=== PATIENT | female | born 1985 | race Caucasian/White ===

== ENCOUNTER 2016-02-29 07:00 | Day surgery (SDC) | payer OTHER ==
[2016-02-21 14:51] VITALS: BMI 21.4
--- NOTE | 2016-02-28 14:42 | P.HPOB ---
History of Present Illness H&P Date: 02/28/16 Chief Complaint: DELFINO III 30 year old presents for LEEP due to LGSIL pap and DELFINO III on colp. Review of Systems All systems: negative Constitutional: Denies chills, Denies fever Eyes: denies blurred vision, denies pain Ears, nose, mouth and throat: Denies headache, Denies sore throat Cardiovascular: Denies chest pain, Denies shortness of breath Respiratory: Denies cough Gastrointestinal: Denies abdominal pain, Denies diarrhea, Denies nausea, Denies vomiting Genitourinary: Denies dysuria, Denies hematuria Musculoskeletal: Denies myalgias Integumentary: Denies pruritus, Denies rash Neurological: Denies numbness, Denies weakness Psychiatric: Denies anxiety, Denies depression Endocrine: Denies fatigue, Denies weight change Past Medical History Past Medical History: Asthma Additional Past Medical History / Comment(s): LYME DISEASE. ABNORMAL PAP SMEAR History of Any Multi-Drug Resistant Organisms: None Reported Past Surgical History: Tubal Ligation Past Anesthesia/Blood Transfusion Reactions: No Reported Reaction Past Psychological History: Depression Smoking Status: Former smoker Past Alcohol Use History: Occasional Additional Past Alcohol Use History / Comment(s): QUIT SMOKING 10 YRS AGO Past Drug Use History: None Reported - Past Family History Mother Family Medical History: No Reported History Medications and Allergies Home Medications Medication Instructions Recorded Confirmed Type Albuterol Sulfate [Proair Hfa] 2 puff INHALATION DIRECTED PRN 11/07/15 History Doxycycline Monohydrate [Monodox] 200 mg PO DAILY 02/21/16 02/21/16 History Escitalopram [Lexapro] 10 mg PO DAILY 02/21/16 02/21/16 History Fluconazole [Diflucan] 200 mg PO DIRECTED 02/21/16 02/21/16 History Allergies Allergy/AdvReac Type Severity Reaction Status Date / Time ciprofloxacin [From Cipro] Allergy Rash/Hives Verified 02/21/16 14:28 ciprofloxacin HCl Allergy Rash/Hives Verified 02/21/16 14:28 [From Cipro] Exam Osteopathic Statement: *. No significant issues noted on an osteopathic structural exam other than those noted in the History and Physical/Consult. Heart: RRR Lungs: CTAB Abdomen: soft, nontender Extremeties: neg ej's Assessment and Plan (1) DELFINO III (cervical intraepithelial neoplasia grade III) with severe dysplasia Status: Acute Plan: 1. LEEP
[~2016-02-29 07:00] MED LIST: DEXAMETHASONE SOD PHOSPHATE 10 MG/ML 1 ML VIAL IV ONE; FAMOTIDINE 20 MG/2 ML VIAL IV PRN; LACTATED RINGERS 1,000 ML IV SCH; LIDOCAINE 1% 20 ML VIAL (10MG/ML) FOR IV START INTRADERMA PRN; MIDAZOLAM 2 MG/2 ML VIAL IV PRN; Pre Op ABX Message 1 EACH MISC MISCELLANE ONE; SCOPOLAMINE 1.5MG/72HR PATCH TRANSDERM ONE
[2016-02-29] MEDS ORDERED: LIDOCAINE 1% 20 ML VIAL (10MG/ML) FOR IV START INTRADERMA ONE (07:39)
[2016-02-29] MEDS ORDERED: MIDAZOLAM 2 MG/2 ML VIAL ONE (07:53)
[2016-02-29] MEDS ORDERED: KETOROLAC 30 MG/ML 1 ML VIAL ONE (07:53)
[2016-02-29] MEDS ORDERED: PROPOFOL 10 MG/ML 20 ML VIAL IV ONE (07:53)
[2016-02-29] MEDS ORDERED: fentaNYL (PF) 50 MCG/ML 2 ML AMP ONE (07:53)
[2016-02-29] MEDS ORDERED: LIDOCAINE 1% INJ 10MG/ML (20 ML MDV) ONE (07:53)
[2016-02-29] MEDS ORDERED: ACETIC ACID 15 DROPS/ML DROPS MISCELLANE ONE (08:05)
[2016-02-29] MEDS ORDERED: FERRIC SUBSULFATE (MONSELS) JAR TOPICAL ONE (08:07)
[2016-02-29 08:24] VITALS: TEMP 97.4
--- NOTE | 2016-02-29 08:32 | P.OP ---
Date of Procedure: 02/29/16 Preoperative Diagnosis: DELFINO III Postoperative Diagnosis: DELFINO III Procedure(s) Performed: LEEP Anesthesia: MAC Surgeon: Sandra Vela Estimated Blood Loss (ml): 1 IV fluids (ml): 400 Urine output (ml): 10 Pathology: other (cervical cone) Condition: stable Disposition: PACU Description of Procedure: Patient taken the operating room where general anesthesia was obtained without difficulty. She is prepped draped normal sterile fashion dorsal lithotomy position, legs placed in candy can stirrups. The latter was drained of all urine. Burns speculum placed in the vagina. A 2 cm loop was used to obtain a cervical biopsy. As taken from patient's right to left. Another sweep was done along the 6 o'clock position and then along the 3 o'clock position. The crater left and the cervix was cauterized with the ball tip. Monsel's was then placed. Excellent hemostasis was observed. Patient tolerated the procedure well, sponge and instrument counts are correct 2. She was taken to recovery room in stable condition.
[2016-02-29 08:44] VITALS: RESP 16
[2016-02-29] MEDS ORDERED: Acetaminophen-Codeine 300-30mg TAB PO ONE (09:10)
[2016-02-29 09:53] VITALS: BP 108/69; PULSE 80
== END 2016-02-29 09:54 | disposition home or self-care (01) ==
LOC: OR 07:00
PROVIDERS: ATTEND Obstetrics & Gynecology
DX: N87.1 Moderate cervical dysplasia (principal); J45.909 Unspecified asthma, uncomplicated; F32.9 Major depressive disorder, single episode, unspecified; Z79.899 Other long term (current) drug therapy; Z88.1 Allergy status to other antibiotic agents; Z87.891 Personal history of nicotine dependence
CPT/HCPCS: 57522; 81025; 88307; J2250; J1100; J2001; J3010; J1885; J2704

== ENCOUNTER → 2017-09-04 | Outpatient (CLI) | payer OTHER ==
--- NOTE | 2017-09-05 07:37 | US ---
EXAMINATION TYPE: US pelvis complete transvag DATE OF EXAM: 09/04/2017 COMPARISON: CT abdomen and pelvis December 22, 2012. Pelvic ultrasound February 03, 2016. CLINICAL HISTORY: N92.5 IRREG MENSES,R10.2 PELVIC AND PERINEAL PAIN,N94.12 DYS. Pelvic pain, spotting between menses, tubal ligation TECHNIQUE: Transvaginal (TV) and Transabdominal (TA) . Transabdominal sonographic images of the pel vis were acquired. Transvaginal sonographic images were medically necessary to better assess the fol lowing anatomy: endometrium and ovaries Date of LMP: 08/30/17 EXAM MEASUREMENTS: Uterus: 10.7 x 3.6 x 4.4 cm Endometrial Stripe: 0.4 cm Right Ovary: 3.3 x 2.5 x 2.7 cm Left Ovary: 2.1 x 2.0 x 2.0 cm 1. Uterus: Anteverted Nabothian cyst. Heterogenous 2. Endometrium: appears wnl 3. Right Ovary: follicles noted 4. Left Ovary: follicles noted Spectral, color and waveform doppler imaging shows good arterial and venous flow within the ovaries . 5. Bilateral Adnexa: appears wnl 6. Posterior cul-de-sac: wnl Heterogeneous anteverted uterus is present. Tiny nabothian cyst is seen in cervix on image 26. No lorena e fluid in pelvic cul-de-sac. Both ovaries are present with scattered peripheral follicles. No suspicious extraovarian adnexal mass es are seen. IMPRESSION: No significant finding is seen to account for patient's symptoms.
== END | disposition home or self-care (01) ==
LOC: RADUSWWP 16:21
PROVIDERS: ATTEND Family Medicine
DX: R10.2 Pelvic and perineal pain (principal); N94.12 Deep dyspareunia; N92.5 Other specified irregular menstruation
CPT/HCPCS: 76830; 76856; 93975

== ENCOUNTER → 2017-11-28 | Outpatient (CLI) | payer OTHER ==
--- NOTE | 2017-11-28 10:13 | USB ---
Reason for exam: clinical finding. Indicated problem(s): palpable abnormality in the right breast. Physical Findings: Nurse Summary: noticed lump 1 week ago (nurse kp). US Breast RT Right complete breast ultrasound includes all four quadrants, the retroareolar region and axilla. Finding demonstrates a 0.6 x 0.5 x 0.7cm oval, cystic lesion at 2 o'clock, a 0.6 x 0.4 x 0.5cm oval, cystic lesion at 8 o'clock, a 1.8 x 1.4 x 1.7cm oval, solid, vascular lesion at 9 o'clock for which a biopsy is recommended and a 1.6 x 0.5 x 0.6cm oval, cystic cluster at 11 o'clock. These results were verbally communicated with the patient and result sheet given to the patient on 11/28/16. ASSESSMENT: Suspicious, BI-RAD 4 RECOMMENDATION: Ultrasound core biopsy of the right breast. Called Dr. Uribe with mammographic findings and has scheduled an appointment for the patient for 12/19/17 at 9:[address] Bennett. Biopsy scheduled for 12/09/17 at 12:20. PRELIMINARY REPORT CALLED AND FAXED TO DR. BENNETT ON 11/28/17.
== END | disposition home or self-care (01) ==
LOC: RADUSWWP 08:22
PROVIDERS: ATTEND Family Medicine
DX: N63.11 Unspecified lump in the right breast, upper outer quadrant (principal); R92.8 Other abnormal and inconclusive findings on diagnostic imaging of breast

== ENCOUNTER → 2017-12-09 | Day surgery (SDC) | payer OTHER ==
[2017-12-09 11:51] VITALS: RESP 16; TEMP 98.1
[2017-12-09 13:26] VITALS: BP 103/66; PULSE 85
--- NOTE | 2017-12-09 16:49 | USB ---
EXAMINATION TYPE: US biopsy breast VAD RT DATE OF EXAM: 12/09/2017 CLINICAL HISTORY: 32-year-old female palpable finding in the right breast. TECHNIQUE: Ultrasound guided core biopsy of the right breast. COMPARISON: 11/28/2017 FINDINGS: The procedure of ultrasound guided core biopsy was explained to the patient. Benefits, alternatives, and risks were discussed. An informed consent was then obtained. The patient was placed in supine positioning for imaging and for the procedure. The overlying skin was prepped and draped in usual sterile fashion. Lidocaine buffered with bicarbonate was used as anesthetic into the skin and subcutaneous tissue. Subsequently, a mixture of lidocaine and epinephrine was used as anesthetic into the deeper tissues and into and around the target lesion at the 9:00 position. Under ultrasound guidance, a 13-gauge vacuum assisted Mammotome Elite biopsy gun device was used to obtain 6 core samples. Following this, a coil clip was left in lesion. The patient tolerated the procedure well without any immediate complication. The patient was kept in the radiology department for short stay after the procedure and then discharged home in stable condition. Given the patient's age and large size of the lesion, postbiopsy mammogram was not performed. IMPRESSION: Successful, uncomplicated ultrasound guided core biopsy of area of concern in the 9:00 right breast, full pathology results to follow. Pathology Results: Benign BREAST, RIGHT, 9:00, ULTRASOUND GUIDED CORE BIOPSY: Fibroadenoma. Background fibrocystic changes including cysts, fibrosis and apocrine metaplasia. Recommendation Follow up ultrasound of the right breast in 6 months. KARLEY
== END ==
LOC: RADUSWWP 11:11
PROVIDERS: ATTEND Surgery
DX: D24.1 Benign neoplasm of right breast (principal)
CPT/HCPCS: 19083; 88305; A4648; J2001

== ENCOUNTER 2018-04-19 14:08 | Emergency (ER) | payer OTHER ==
[2018-04-19 14:14] VITALS: RESP 18
--- NOTE | 2018-04-19 15:11 | XR ---
EXAMINATION TYPE: XR chest 2V DATE OF EXAM: 04/19/2018 COMPARISON: NONE HISTORY: Cough and congestion TECHNIQUE: Frontal and lateral views of the chest are obtained. FINDINGS: There is no focal air space opacity, pleural effusion, or pneumothorax seen. The cardiac silhouette size is within normal limits. The osseous structures are intact. IMPRESSION: No acute cardiopulmonary process.
--- NOTE | 2018-04-19 16:24 | ED ---
General Adult HPI - General Chief complaint: Shortness of Breath Stated complaint: Cough Time Seen by Provider: 04/19/18 14:22 Source: patient, RN notes reviewed Mode of arrival: ambulatory Limitations: no limitations - History of Present Illness Initial comments: 33-year-old female presents to the emergency department for a chief complaint of cough. Patient does have a history of asthma. Patient states the cough is productive with green mucus. Patient states she also has congestion noted. She states over the past couple days she is concerned because somewhat short of breath. She states the shortness of breath is exactly consistent with previous asthma. Patient has been on steroids for the past several days as well as breathing treatments at home but does not feel she is getting better. She states that she has had this in the past she has needed antibiotics. She denies any chest pain. She denies significant fevers. Patient denies any recent travel, leg swelling, oral contraceptive pills, history of blood clots Patient has no other complaints at this time including chest pain, abdominal pain, nausea or vomiting, headache, or visual changes. - Related Data Previous Rx's Medication Instructions Recorded Azithromycin [Zithromax Z-pack] 250 mg PO DIRECTED #6 tab 04/19/18 Allergies Allergy/AdvReac Type Severity Reaction Status Date / Time ciprofloxacin [From Cipro] Allergy Rash/Hives Verified 04/19/18 14:13 ciprofloxacin HCl Allergy Rash/Hives Verified 04/19/18 14:13 [From Cipro] Review of Systems ROS Statement: Those systems with pertinent positive or pertinent negative responses have been documented in the HPI. ROS Other: All systems not noted in ROS Statement are negative. Past Medical History Past Medical History: Asthma Additional Past Medical History / Comment(s): LYME DISEASE. ABNORMAL PAP SMEAR History of Any Multi-Drug Resistant Organisms: None Reported Past Surgical History: Tubal Ligation Past Anesthesia/Blood Transfusion Reactions: No Reported Reaction Past Psychological History: Depression Smoking Status: Former smoker Past Alcohol Use History: Occasional Past Drug Use History: None Reported - Past Family History Mother Family Medical History: No Reported History General Exam Limitations: no limitations General appearance: alert, in no apparent distress Head exam: Present: atraumatic, normocephalic, normal inspection Eye exam: Present: normal appearance, PERRL, EOMI. Absent: scleral icterus, conjunctival injection, periorbital swelling ENT exam: Present: normal exam Neck exam: Present: normal inspection. Absent: tenderness, meningismus, lymphadenopathy Respiratory exam: Present: wheezes (Minimal wheezing noted in bilateral lung viera). Absent: respiratory distress (No respiratory distress noted, respirations are even and unlabored. Patient is smiling and appears well), rales, rhonchi, stridor Cardiovascular Exam: Present: regular rate, normal rhythm, normal heart sounds. Absent: systolic murmur, diastolic murmur, rubs, gallop, clicks Neurological exam: Present: alert, oriented X3, CN II-XII intact Psychiatric exam: Present: normal affect, normal mood Course Vital Signs 04/19/18 04/19/18 14:12 16:39 Temperature 98.2 F 98.4 F Pulse Rate 103 H 72 Respiratory 18 18 Rate Blood Pressure 115/56 115/78 O2 Sat by Pulse 97 98 Oximetry Medical Decision Making - Medical Decision Making 33-year-old female presents to the emergency department for a chief complaint of cough 1 week. Patient states this is productive with green mucus. She also has minimal shortness of breath over the past several days. Patient states this feels exactly related to her asthma. She has been on steroids for the past couple days without significant improvement. States that this has happened in the past and she has needed antibiotics. No leg swelling, recent travel, hemoptysis, oral contraceptive pills. Mild wheezing noted in lower bilateral lung viera. Offered patient breathing treatments which she refuses at this time stating she has these at home and would rather do one of her own. Influenza and RSV are negative just x-ray negative for acute cardiopulmonary process. However patient will be treated with azithromycin for possible atypical pneumonia. Will follow up with primary one to 2 days. Will return here if she has any worsening symptoms or increasing shortness of breath. - Lab Data Lab Results 04/19/18 Range/Units 14:43 Influenza Type A RNA Not Detected (Not Detectd) Influenza Type B (PCR) Not Detected (Not Detectd) Disposition Clinical Impression: Cough Disposition: HOME SELF-CARE Condition: Good Instructions (If sedation given, give patient instructions): Upper Respiratory Infection (ED) Additional Instructions: Please take antibiotic as directed. Please up with primary care in 1-2 days. If you are having worsening symptoms return here to the emergency department. Prescriptions: Azithromycin [Zithromax Z-pack] 250 mg PO DIRECTED #6 tab Is patient prescribed a controlled substance at d/c from ED?: No Referrals: Farzad Uribe III, MD [Primary Care Provider] - 1-2 days Time of Disposition: 16:22
[2018-04-19 16:40] VITALS: BP 115/78; PULSE 72; TEMP 98.4
== END 2018-04-19 16:38 | disposition home or self-care (01) ==
LOC: EC 14:08
DX: R05 Cough (principal); J45.909 Unspecified asthma, uncomplicated; Z88.1 Allergy status to other antibiotic agents; Z87.891 Personal history of nicotine dependence
CPT/HCPCS: 71046; 87502; 99285

== ENCOUNTER → 2018-04-25 | Day surgery (SDC) | payer OTHER ==
[2018-04-22 11:10] VITALS: BMI 20.5
[~2018-04-25] MED LIST changes: +BUPIVACAINE (PF) 0.25% 30 ML VIAL SQ ONE; -FAMOTIDINE 20 MG/2 ML VIAL IV PRN; +HEPARIN SODIUM,PORCINE 5,000 UNIT/ML 1 ML VIAL SQ ONE; +HYDROcodone/APAP 5-325MG 1 EACH TAB PO ONE; +HYDROcodone/APAP 5-325MG 1 EACH TAB PO PRN; +HYDROmorphone 0.5 MG/0.5 ML SYRINGE IVP PRN; +KETOROLAC 30 MG/ML 1 ML VIAL ONE; +LIDOCAINE 0.5%-EPI 1:200,000 50 ML VIAL SQ ONE; -LIDOCAINE 1% 20 ML VIAL (10MG/ML) FOR IV START INTRADERMA PRN; +LIDOCAINE 1% INJ 10MG/ML (20 ML MDV) ONE; +MIDAZOLAM (PF) 2 MG/2 ML VIAL IV PRN; -MIDAZOLAM 2 MG/2 ML VIAL IV PRN; +NALOXONE 0.4 MG/ML 1 ML VIAL IV PRN; +ONDANSETRON 4 MG/2 ML VIAL IVP ONE; +PROPOFOL 10 MG/ML 20 ML VIAL IV ONE; +diphenhydrAMINE 50 MG/ML 1 ML VIAL ONE; +fentaNYL (PF) 50 MCG/ML 2 ML AMP ONE
[2018-04-25 11:00] LABS: Glucose,Whole Blood 86 mg/dL (75-99)
--- NOTE | 2018-04-25 12:56 | P.GSHP ---
History of Present Illness H&P Date: 04/25/18 Chief Complaint: Right breast mass 33-year-old female known to our service. Patient underwent ultrasound after feeling a mass in the right breast. Ultrasound showed a 1.8 cm solid lesion. Ultrasound core biopsy was performed which revealed a fibroadenoma. Options of observation versus excision given the size of this lesion and the patient's ongoing inability to feel the mass discussed. Initially observation was chosen however she contacted us stating that she was concerned it was enlarging. Here today for surgical excision of this right breast mass. Past Medical History Past Medical History: Asthma Additional Past Medical History / Comment(s): LYME DISEASE. ABNORMAL PAP SMEAR. RT BREAST FIBROADENOMA. SEEN IN ER 04/19/18 FOR COUGH/ASTHMA History of Any Multi-Drug Resistant Organisms: None Reported Past Surgical History: Tubal Ligation Additional Past Surgical History / Comment(s): LEEP Past Anesthesia/Blood Transfusion Reactions: No Reported Reaction Smoking Status: Former smoker - Past Family History Mother Family Medical History: No Reported History Medications and Allergies Home Medications Medication Instructions Recorded Confirmed Type Azithromycin [Zithromax Z-pack] 250 mg PO DIRECTED #6 tab 04/19/18 04/25/18 Rx Albuterol Inhaler [Ventolin Hfa 1 - 2 puff INHALATION RT-Q6H PRN 04/22/18 History Inhaler] Albuterol Nebulized [Ventolin 1 dose INHALATION QID 04/22/18 04/25/18 History Nebulized] Montelukast [Singulair] 10 mg PO DAILY 04/22/18 04/25/18 History predniSONE 10 mg PO DIRECTED 04/22/18 04/25/18 History Allergies Allergy/AdvReac Type Severity Reaction Status Date / Time ciprofloxacin [From Cipro] Allergy Rash/Hives Verified 04/25/18 10:39 ciprofloxacin HCl Allergy Rash/Hives Verified 04/25/18 10:39 [From Cipro] Surgical - Exam Vital Signs Temp Pulse Resp BP Pulse Ox 98.6 F 85 16 113/72 98 04/25/18 10:40 04/25/18 10:40 04/25/18 10:40 04/25/18 10:40 04/25/18 10:40 Physical exam: General: Well-developed, well-nourished HEENT: Normocephalic, sclerae nonicteric Abdomen: Nontender, nondistended Extremities: No edema Neuro: Alert and oriented Right breast with 2 cm mass 9:00, no adenopathy Assessment and Plan (1) Breast mass, right Narrative/Plan: Will proceed with right breast excisional biopsy at this time. Risks of bleeding, infection, scarring, numbness, dimpling, pain, recurrence reviewed. She understands and wishes to proceed. Current Visit: Yes Status: Acute Code(s): N63.10 - UNSPECIFIED LUMP IN THE RIGHT BREAST, UNSPECIFIED QUADRANT SNOMED Code(s): 36506458
--- NOTE | 2018-04-25 14:23 | P.OP ---
Date of Procedure: 04/25/18 Procedure(s) Performed: PREOPERATIVE DIAGNOSIS: Right breast fibroadenoma POSTOPERATIVE DIAGNOSIS: Same PROCEDURE: Excisional biopsy right breast fibroadenoma SURGEON: Donald EBL: Nakita Kohler ANESTHESIA: Gen. COMPLICATIONS: None OPERATIVE PROCEDURE: And placed in the operating table in the supine position for the patient was placed under general anesthesia. The right breast was prepped and draped in usual sterile fashion. An elliptical incision made along the lateral aspect of the areola. Dissection through the subcutaneous tissues took place using electrocautery. The mass was present at 9:00. This was approximately 3-4 cm from the areola. The mass was fully excised with the use of electrocautery. This measured approximately 2 centimeters in size. Subcutaneous tissues closed using 3-0 Vicryl sutures. Skin closed using 4-0 Monocryl sutures. Skin glue and sterile dressings applied. DISPOSITION: Stable to recovery room
[2018-04-25 14:33] VITALS: TEMP 97.7
[2018-04-25 14:43] VITALS: RESP 16
[2018-04-25 15:16] VITALS: BP 96/55; PULSE 85
== END | disposition home or self-care (01) ==
LOC: OR 10:25
PROVIDERS: ATTEND Surgery
DX: D24.1 Benign neoplasm of right breast (principal); Z87.891 Personal history of nicotine dependence; Z88.1 Allergy status to other antibiotic agents; J45.909 Unspecified asthma, uncomplicated
CPT/HCPCS: 81025; 88305; 19120; J1200; J1644; J1100; J2405; J2001; J3010; J1885; J2704

== ENCOUNTER 2018-07-09 07:56 | Emergency (ER) | payer OTHER ==
[2018-07-09 07:59] VITALS: BP 108/72; PULSE 88; RESP 20; TEMP 97.5
[2018-07-09] MEDS ORDERED: DEXAMETHASONE 4 MG TAB PO STA (08:11)
[2018-07-09] MEDS ORDERED: ACETAMINOPHEN TAB 325 MG TAB PO STA (08:11)
--- NOTE | 2018-07-09 08:14 | ED ---
ENT HPI - General Chief complaint: ENT Stated complaint: sorethroat Source: patient Mode of arrival: ambulatory Limitations: no limitations - History of Present Illness Initial comments: 33-year-old female who denies past medical history presenting today for chief complaint of sore throat, headache. Patient states she has had sore throat headache some chills for the past day. She states she noticed white spots on her tonsils she denies any difficulty swallowing or breathing. She denies any compressive symptoms. Patient denies any photophobia or neck stiffness. Patient denies any abdominal pain nausea vomiting diarrhea. Patient denies . Remaining review of systems negative. Upon arrival patient appears well no signs acute distress patient does not appear toxic. - Related Data Home Medications Medication Instructions Recorded Confirmed Albuterol Inhaler [Ventolin Hfa 1 - 2 puff INHALATION RT-Q6H PRN 04/22/18 07/09/18 Inhaler] Montelukast [Singulair] 10 mg PO DAILY 04/22/18 07/09/18 Ibuprofen [Advil] 800 mg PO Q6HR 07/09/18 07/09/18 Previous Rx's Medication Instructions Recorded Amoxicillin 500 mg PO Q12H 10 Days #20 capsule 07/09/18 Allergies Allergy/AdvReac Type Severity Reaction Status Date / Time ciprofloxacin [From Cipro] Allergy Rash/Hives Verified 07/09/18 08:15 ciprofloxacin HCl Allergy Rash/Hives Verified 07/09/18 08:15 [From Cipro] Review of Systems ROS Statement: Those systems with pertinent positive or pertinent negative responses have been documented in the HPI. ROS Other: All systems not noted in ROS Statement are negative. Past Medical History Past Medical History: Asthma Additional Past Medical History / Comment(s): LYME DISEASE. ABNORMAL PAP SMEAR History of Any Multi-Drug Resistant Organisms: None Reported Past Surgical History: Tubal Ligation Past Anesthesia/Blood Transfusion Reactions: No Reported Reaction Past Psychological History: Depression Smoking Status: Former smoker Past Alcohol Use History: None Reported Past Drug Use History: None Reported - Past Family History Mother Family Medical History: No Reported History General Exam - General Exam Comments Initial Comments: General: The patient is awake and alert, in no distress, and does not appear acutely ill. Eye: +3 mm pupils are equal, round and reactive to light, extra-ocular movements are intact. No nystagmus. There is normal conjunctiva bilaterally. No signs of icterus. No photophobia Ears, nose, mouth and throat: There are moist mucous membranes and no oral lesions. Oropharynx is erythematous there is erythematous tonsils with many exudates. Uvula midline. Tympanic membranes are not erythematous or is no effusions bulging or retraction. No tenderness to palpation of the mastoid. No anterior cervical lymphadenopathy. Rhinorrhea, clear and bilateral nares. No tripoding, no drooling. Neck: The neck is supple, there is no tenderness or JVD. No nuchal rigidity negative Brudzinski and Kernig Cardiovascular: There is a regular rate and rhythm. No murmur, rub or gallop is appreciated. Respiratory: Lungs are clear to auscultation, respirations are non-labored, breath sounds are equal. No wheezes, stridor, rales, or rhonchi. No retractions or abdominal breathing. Gastrointestinal: Soft, non-distended, non-tender abdomen without masses or organomegaly noted. There is no rebound or guarding present. Bowel sounds are unremarkable. Musculoskeletal: Normal ROM, no tenderness. Strength 5/5. Sensation intact. Radial pulses equal bilaterally 2+. Neurological: A&O x 3. CN II-XII intact, There are no obvious motor or sensory deficits. Coordination appears grossly intact. Speech appears normal, no muffling. Skin: Skin is warm and dry and no rashes or lesions are noted. No extremity edema Psychiatric: Cooperative Limitations: no limitations Course Vital Signs 07/09/18 07:57 Temperature 97.5 F L Pulse Rate 88 Respiratory 20 Rate Blood Pressure 108/72 O2 Sat by Pulse 100 Oximetry Medical Decision Making - Medical Decision Making Very well-appearing 33-year-old year-old presents for sore throat headache. Patient states is dull aching headache that comes and goes. Patient denies is coming on suddenly or being the worse headache of her life. Patient states she feels like she has a cold. Patient has pain with swallowing exudates on tonsils upon examination as well as erythema. Uvula is midline there is no signs of peritonsillar abscess. Patient does not appear toxic. She also complains of congestion and ear pressure. Normal examination the tympanic membranes and external auditory canal. At this time of high suspicion for strep pharyngitis. Patient be prescribed amoxicillin. Discussed if pt develops rash from amoxicillin she may have mononucleosis reaction. Patient verbalizes understanding. As well as the importance of follow-up with primary care provider. Return parameters were discussed at length. He is provided Decadron in the emergency department for symptomatically relief. Patient is agreeable care plan and discharged today. I spoke with Dr. Vazquez over the phone who is agreeable care plan discharge today Disposition Clinical Impression: Pharyngitis, Headache Disposition: HOME SELF-CARE Condition: Good Additional Instructions: Please use medication as discussed. Please follow-up with family doctor in the next 2 days. Please return to emergency room if the symptoms increase or worsen or for any other concerns. Prescriptions: Amoxicillin 500 mg PO Q12H 10 Days #20 capsule Is patient prescribed a controlled substance at d/c from ED?: No Referrals: Farzad Uribe III, MD [Primary Care Provider] - 1-2 days Time of Disposition: 08:15
== END 2018-07-09 08:27 | disposition home or self-care (01) ==
LOC: EC 07:56
DX: J02.9 Acute pharyngitis, unspecified (principal); R51 Headache; J45.909 Unspecified asthma, uncomplicated; Z79.899 Other long term (current) drug therapy; Z88.1 Allergy status to other antibiotic agents; Z87.891 Personal history of nicotine dependence
CPT/HCPCS: 99282; J8540

== ENCOUNTER 2018-09-06 18:27 | Emergency (ER) | payer OTHER ==
[2018-09-06 18:46] VITALS: TEMP 98.4
[2018-09-06] MEDS ORDERED: SODIUM CHLORIDE 0.9% 500 ML 500 ML IV STA (19:01)
[2018-09-06 20:08] LABS: Basophils % (A) 0 %; Eosinophils # (A) 0.1 k/uL (0-0.7); Eosinophils % (A) 1 %; HCT 38.9 % (34.0-46.0); Lymphocytes # (A) 1.8 k/uL (1.0-4.8); Lymphocytes % (A) 20 %; MCH 31.4 pg (25.0-35.0); MCHC 33.5 g/dL (31.0-37.0); MCV 93.6 fL (80.0-100.0); Mean Platelet Volume 8.3; Monocytes # (A) 0.4 k/uL (0-1.0); Monocytes % (A) 4 %; Neutrophils # (A) 6.3 k/uL (1.3-7.7); Neutrophils % (A) 73 %; Platelet Count 157 k/uL (150-450); RBC 4.16 m/uL (3.80-5.40); RDW 12.2 % (11.5-15.5); WBC 8.7 k/uL (3.8-10.6)
[2018-09-06 20:21] LABS: Chloride 105 mmol/L (98-107); Glucose 91 mg/dL (74-99); Potassium 4.1 mmol/L (3.5-5.1); Sodium 139 mmol/L (137-145)
[2018-09-06 20:22] LABS: ALT 20 U/L (9-52); AST 16 U/L (14-36); African American GFR (CKD) >90 (>60 ml/min/1.73 sqM); Albumin 4.2 g/dL (3.5-5.0); Alkaline Phosphatase 51 U/L (38-126); Amylase 44 U/L (30-110); Anion Gap 9 mmol/L; Blood Urea Nitrogen 10 mg/dL (7-17); Calcium 9.4 mg/dL (8.4-10.2); Carbon Dioxide 25 mmol/L (22-30); Lipase 50 U/L (23-300); Total Bilirubin 0.4 mg/dL (0.2-1.3); Total Protein 6.6 g/dL (6.3-8.2)
--- NOTE | 2018-09-06 20:25 | US ---
EXAMINATION TYPE: US abdomen limited DATE OF EXAM: 09/06/2018 COMPARISON: NONE CLINICAL HISTORY: RUQ pain. RUQ pain EXAM MEASUREMENTS: Liver Length: 13.9 cm Gallbladder Wall: 0.23 cm CBD: 0.46 cm Right Kidney: 11.1 x 3.3 x 5.0 cm Pancreas: wnl Liver: wnl Gallbladder: wnl Evidence for sonographic Yen's sign: No CBD: wnl Right Kidney: wnl IMPRESSION: 1. Normal right upper quadrant ultrasound
[2018-09-06 20:43] LABS: Appearance,Urine Cloudy (Clear); Bacteria,Urine Rare /hpf; Bilirubin,Urine Negative (Negative); Blood,Urine Negative (Negative); Calcium Oxalate Crystals,Urine Occasional /hpf; Color,Urine Yellow; Glucose,Urine (UA) Negative (Negative); Ketones,Urine 1+ (Negative); Leukocyte Esterase,Urine Negative (Negative); Mucus,Urine Many /hpf; Nitrite,Urine Negative (Negative); PH, Urine 5.5 (5.0-8.0); Protein,Urine Trace (Negative); RBC,Urine 1 /hpf (0-5); Specific Gravity,Urine 1.024 (1.001-1.035); Squamous Epithelial Cell,Urine 14 /hpf (0-4); Urobilinogen,Urine <2.0 mg/dL (<2.0); WBC,Urine 4 /hpf (0-5)
--- NOTE | 2018-09-06 21:24 | XR ---
EXAMINATION TYPE: XR abdomen acute w cxr DATE OF EXAM: 09/06/2018 COMPARISON: None HISTORY: Pain nausea TECHNIQUE: Acute abdominal series performed on a frontal chest upright and supine views of the abdome n FINDINGS: No free air is under the diaphragm. Nonspecific bowel gas is present within small bowel loo ps as well as the colon. No suspicious air-fluid levels or differential air-fluid levels are present within the [id number]. Lung viera are clear. IMPRESSION: 1. Normal acute abdominal series.
--- NOTE | 2018-09-06 21:55 | ED ---
Abdominal Pain HPI - General Source: patient Mode of arrival: ambulatory Limitations: no limitations <Ebony Neal - Last Filed: 09/06/18 23:11> <Joan Juarez - Last Filed: 09/07/18 05:32> - General Chief Complaint: Abdominal Pain Stated Complaint: Rt side Abd pain - History of Present Illness Initial Comments: 33-year-old female presenting for 3 hours of right upper quadrant abdominal pain. Patient states this sharp in nature. Denies radiation. Patient states it comes and goes in intensity. Patient denies any back pain. Denies chest pain shortness of breath cough or fevers. Patient denies any jaundice. Patient denies vomiting epigastric pain or lower abdominal pain. Patient denies diarrhea or constipation. Patient states when the pain persisted she decided to presents immersed for for further evaluation. Upon arrival patient appears well no signs of acute distress. Vital signs within acceptable limits. (Ebony Neal) - Related Data Home Medications Medication Instructions Recorded Confirmed Albuterol Inhaler [Ventolin Hfa 1 - 2 puff INHALATION RT-Q6H PRN 04/22/18 07/09/18 Inhaler] Montelukast [Singulair] 10 mg PO DAILY 04/22/18 07/09/18 Ibuprofen [Advil] 800 mg PO Q6HR 07/09/18 07/09/18 Previous Rx's Medication Instructions Recorded Amoxicillin 500 mg PO Q12H 10 Days #20 capsule 07/09/18 Allergies Allergy/AdvReac Type Severity Reaction Status Date / Time ciprofloxacin [From Cipro] Allergy Rash/Hives Verified 07/09/18 08:15 ciprofloxacin HCl Allergy Rash/Hives Verified 07/09/18 08:15 [From Cipro] Review of Systems ROS Other: All systems not noted in ROS Statement are negative. <Ebony Neal - Last Filed: 09/06/18 23:11> ROS Other: All systems not noted in ROS Statement are negative. <Joan Juarez - Last Filed: 09/07/18 05:32> ROS Statement: Those systems with pertinent positive or pertinent negative responses have been documented in the HPI. Past Medical History Past Medical History: Asthma Additional Past Medical History / Comment(s): LYME DISEASE. ABNORMAL PAP SMEAR History of Any Multi-Drug Resistant Organisms: None Reported Past Surgical History: Tubal Ligation Additional Past Surgical History / Comment(s): lumpectomy right breast Past Anesthesia/Blood Transfusion Reactions: No Reported Reaction Past Psychological History: Depression Smoking Status: Former smoker Past Alcohol Use History: Occasional Past Drug Use History: None Reported - Past Family History Mother Family Medical History: No Reported History <Ebony Neal - Last Filed: 09/06/18 23:11> General Exam Limitations: no limitations <Ebony Neal - Last Filed: 09/06/18 23:11> - General Exam Comments Initial Comments: General: The patient is awake and alert, in no distress, and does not appear acutely ill. Eye: Pupils are equal, round and reactive to light, extra-ocular movements are intact. No nystagmus. There is normal conjunctiva bilaterally. No signs of icterus. Ears, nose, mouth and throat: There are moist mucous membranes and no oral lesions. Neck: The neck is supple, there is no tenderness or JVD. Cardiovascular: There is a regular rate and rhythm. No murmur, rub or gallop is appreciated. Respiratory: Lungs are clear to auscultation, respirations are non-labored, breath sounds are equal. No wheezes, stridor, rales, or rhonchi. Gastrointestinal: Soft, non-distended, right upper quadrant tenderness, (-) murphys sign, the abdomen without masses or organomegaly noted. There is no rebound or guarding present. No CVA tenderness. Bowel sounds are unremarkable. Musculoskeletal: Normal ROM, no tenderness. Strength 5/5. Sensation intact. Pulses equal bilaterally 2+. Neurological: A&O x 3. CN II-XII intact, There are no obvious motor or sensory deficits. Coordination appears grossly intact. Speech is normal. Skin: Skin is warm and dry and no rashes or lesions are noted. Psychiatric: Cooperative, appropriate mood & affect, normal judgment. (Ebony Neal) Course Vital Signs 09/06/18 09/06/18 18:41 22:04 Temperature 98.4 F Pulse Rate 78 81 Respiratory 18 16 Rate Blood Pressure 110/74 112/76 O2 Sat by Pulse 99 98 Oximetry Medical Decision Making - Lab Data Result diagrams: 09/06/18 19:38 09/06/18 19:38 <Ebony Neal - Last Filed: 09/06/18 23:11> - Lab Data Result diagrams: 09/06/18 19:38 09/06/18 19:38 <Joan Juarez - Last Filed: 09/07/18 05:32> - Medical Decision Making [age] female presented for upper quadrant abdominal pain. There is noted pain on examination. Appears mild. No rigidity no guarding no signs of peritoneal irritation. She appears well signs of acute distress. US (-). Acute abdomen series no free air. 1 view chest no abnormalities. Laboratory studies all within acceptable limits. At this time after reevaluation and repeat abdominal exam. I feel patient is stable for discharge with anticipatory guidance/strict return parameters for changes in symptoms/persistence. Patient is agreeable with care plan and discharge. I did consult Dr. Juarez prior to discharge. (Ebony Neal) I was available for consultation in the emergency department. The history and physical exam were done by the midlevel provider. I was consulted for this patient's care. I reviewed the case with the midlevel provider and based on their presentation of the patient, I agree with the assessment, medical decision making and plan of care as documented. Chart was dictated using [employer] dictation software. Attempts were made to correct any dictation errors however some typographical errors may persist. (Joan Juarez) - Lab Data Lab Results 09/06/18 09/06/18 09/06/18 Range/Units 19:38 19:38 20:20 WBC 8.7 (3.8-10.6) k/uL RBC 4.16 (3.80-5.40) m/uL Hgb 13.0 (11.4-16.0) gm/dL Hct 38.9 (34.0-46.0) % MCV 93.6 (80.0-100.0) fL MCH 31.4 (25.0-35.0) pg MCHC 33.5 (31.0-37.0) g/dL RDW 12.2 (11.5-15.5) % Plt Count 157 (150-450) k/uL Neutrophils % 73 % Lymphocytes % 20 % Monocytes % 4 % Eosinophils % 1 % Basophils % 0 % Neutrophils # 6.3 (1.3-7.7) k/uL Lymphocytes # 1.8 (1.0-4.8) k/uL Monocytes # 0.4 (0-1.0) k/uL Eosinophils # 0.1 (0-0.7) k/uL Basophils # 0.0 (0-0.2) k/uL Sodium 139 (137-145) mmol/L Potassium 4.1 (3.5-5.1) mmol/L Chloride 105 (98-107) mmol/L Carbon Dioxide 25 (22-30) mmol/L Anion Gap 9 mmol/L BUN 10 (7-17) mg/dL Creatinine 0.60 (0.52-1.04) mg/dL Est GFR (CKD-EPI)AfAm >90 (>60 ml/min/1.73 sqM) Est GFR (CKD-EPI)NonAf >90 (>60 ml/min/1.73 sqM) Glucose 91 (74-99) mg/dL Calcium 9.4 (8.4-10.2) mg/dL Total Bilirubin 0.4 (0.2-1.3) mg/dL AST 16 (14-36) U/L ALT 20 (9-52) U/L Alkaline Phosphatase 51 (38-126) U/L Total Protein 6.6 (6.3-8.2) g/dL Albumin 4.2 (3.5-5.0) g/dL Amylase 44 (30-110) U/L Lipase 50 (23-300) U/L Urine Color Urine Appearance (Clear) Urine pH (5.0-8.0) Ur Specific [place] (1.001-1.035) Urine Protein (Negative) Urine Glucose (UA) (Negative) Urine Ketones (Negative) Urine Blood (Negative) Urine Nitrite (Negative) Urine Bilirubin (Negative) Urine Urobilinogen (<2.0) mg/dL Ur Leukocyte Esterase (Negative) Urine RBC (0-5) /hpf Urine WBC (0-5) /hpf Ur Squamous Epith Cells (0-4) /hpf Calcium Oxalate Crystal (None) /hpf Urine Bacteria (None) /hpf Urine Mucus (None) /hpf Urine HCG, Qual Not Detected (Not Detectd) 09/06/18 Range/Units 20:20 WBC (3.8-10.6) k/uL RBC (3.80-5.40) m/uL Hgb (11.4-16.0) gm/dL Hct (34.0-46.0) % MCV (80.0-100.0) fL MCH (25.0-35.0) pg MCHC (31.0-37.0) g/dL RDW (11.5-15.5) % Plt Count (150-450) k/uL Neutrophils % % Lymphocytes % % Monocytes % % Eosinophils % % Basophils % % Neutrophils # (1.3-7.7) k/uL Lymphocytes # (1.0-4.8) k/uL Monocytes # (0-1.0) k/uL Eosinophils # (0-0.7) k/uL Basophils # (0-0.2) k/uL Sodium (137-145) mmol/L Potassium (3.5-5.1) mmol/L Chloride (98-107) mmol/L Carbon Dioxide (22-30) mmol/L Anion Gap mmol/L BUN (7-17) mg/dL Creatinine (0.52-1.04) mg/dL Est GFR (CKD-EPI)AfAm (>60 ml/min/1.73 sqM) Est GFR (CKD-EPI)NonAf (>60 ml/min/1.73 sqM) Glucose (74-99) mg/dL Calcium (8.4-10.2) mg/dL Total Bilirubin (0.2-1.3) mg/dL AST (14-36) U/L ALT (9-52) U/L Alkaline Phosphatase (38-126) U/L Total Protein (6.3-8.2) g/dL Albumin (3.5-5.0) g/dL Amylase (30-110) U/L Lipase (23-300) U/L Urine Color Yellow Urine Appearance Cloudy H (Clear) Urine pH 5.5 (5.0-8.0) Ur Specific [place] 1.024 (1.001-1.035) Urine Protein Trace H (Negative) Urine Glucose (UA) Negative (Negative) Urine Ketones 1+ H (Negative) Urine Blood Negative (Negative) Urine Nitrite Negative (Negative) Urine Bilirubin Negative (Negative) Urine Urobilinogen <2.0 (<2.0) mg/dL Ur Leukocyte Esterase Negative (Negative) Urine RBC 1 (0-5) /hpf Urine WBC 4 (0-5) /hpf Ur Squamous Epith Cells 14 H (0-4) /hpf Calcium Oxalate Crystal Occasional H (None) /hpf Urine Bacteria Rare H (None) /hpf Urine Mucus Many H (None) /hpf Urine HCG, Qual (Not Detectd) Disposition Is patient prescribed a controlled substance at d/c from ED?: No Time of Disposition: 21:55 <Ebony Neal - Last Filed: 09/06/18 23:11> <Joan Juarez P - Last Filed: 09/07/18 05:32> Clinical Impression: RUQ abdominal pain Disposition: HOME SELF-CARE Condition: Good Instructions (If sedation given, give patient instructions): Abdominal Pain (ED) Additional Instructions: Please use medication as discussed. Please follow-up with family doctor in the next 2 days, recommend surgical consultation if symptoms persistent for possible gallbladder colic. Please return to emergency room if the symptoms increase or worsen or for any other concerns. Referrals: Farzad Uribe III, MD [Primary Care Provider] - 1-2 days John Bennett MD [Medical Doctor] - 1-2 days
[2018-09-06 22:05] VITALS: BP 112/76; PULSE 81; RESP 16
== END 2018-09-06 22:00 | disposition home or self-care (01) ==
LOC: EC 18:27
DX: R10.11 Right upper quadrant pain (principal); Z32.02 Encounter for pregnancy test, result negative; J45.909 Unspecified asthma, uncomplicated; Z79.899 Other long term (current) drug therapy; Z88.1 Allergy status to other antibiotic agents; Z87.891 Personal history of nicotine dependence
CPT/HCPCS: 36415; 74022; 76705; 80053; 81001; 81025; 82150; 83690; 85025; 96360; 99284

== ENCOUNTER → 2018-09-24 | Outpatient (CLI) | payer OTHER ==
--- NOTE | 2018-09-24 14:11 | US ---
EXAMINATION TYPE: US transvaginal DATE OF EXAM: 09/24/2018 COMPARISON: US 2018 CLINICAL HISTORY: R10.2 Pelvic pain. Intermittent pelvic pain and pain during intercourse x couple we eks, 2, para 2, history of tubal ligation. TECHNIQUE: Transvaginal only per ordering physician. Date of LMP: 09/20/2018 EXAM MEASUREMENTS: Uterus: 8.3 x 3.5 x 5.7 cm Endometrial Stripe: 0.2 cm Right Ovary: 2.9 x 1.8 x 1.9 cm Left Ovary: 3.2 x 2.2 x 2.2 cm 1. Uterus: anteverted, heterogeneous 2. Endometrium: small amount of fluid within endo 3. Right Ovary: multiple follicles with largest measuring 1.2cm 4. Left Ovary: multiple follicles with largest measuring 1.8cm 5. Bilateral Adnexa: wnl 6. Posterior cul-de-sac: wnl IMPRESSION: Trace amount of fluid in the endometrial canal is likely physiologic related to phase of menses. Multiple bilateral ovarian follicles are seen, likely physiologic in this premenopausal femal e.
== END | disposition home or self-care (01) ==
LOC: RADUSWWP 13:27
PROVIDERS: ATTEND Family Medicine
DX: R10.2 Pelvic and perineal pain (principal)
CPT/HCPCS: 76830

== ENCOUNTER 2019-04-12 09:54 | Emergency (ER) | payer OTHER ==
[2019-04-12 10:02] VITALS: RESP 18; TEMP 98
[2019-04-12 10:27] LABS: Basophils # (A) 0.1 k/uL (0-0.2); Basophils % (A) 1 %; Eosinophils # (A) 0.1 k/uL (0-0.7); Eosinophils % (A) 1 %; HCT 41.7 % (34.0-46.0); HGB 13.6 gm/dL (11.4-16.0); Lymphocytes # (A) 1.4 k/uL (1.0-4.8); Lymphocytes % (A) 26 %; MCH 31.3 pg (25.0-35.0); MCHC 32.6 g/dL (31.0-37.0); Mean Platelet Volume 8.7; Monocytes # (A) 0.4 k/uL (0-1.0); Monocytes % (A) 6 %; Neutrophils # (A) 3.4 k/uL (1.3-7.7); Neutrophils % (A) 62 %; Platelet Count 206 k/uL (150-450); RBC 4.34 m/uL (3.80-5.40); RDW 12.1 % (11.5-15.5); WBC 5.5 k/uL (3.8-10.6)
[2019-04-12 10:37] LABS: ALT 14 U/L (4-34); AST 19 U/L (14-36); African American GFR (CKD) >90 (>60 ml/min/1.73 sqM); Albumin 4.5 g/dL (3.5-5.0); Alkaline Phosphatase 55 U/L (38-126); Amylase 46 U/L (30-110); Anion Gap 8 mmol/L; Bacteria,Urine Rare /hpf; Blood Urea Nitrogen 9 mg/dL (7-17); Calcium 9.7 mg/dL (8.4-10.2); Carbon Dioxide 27 mmol/L (22-30); Chloride 103 mmol/L (98-107); Glucose 80 mg/dL (74-99); Mucus,Urine Many /hpf; Non-African American GFR(CKD) >90 (>60 ml/min/1.73 sqM); RBC,Urine 6 /hpf (0-5); Sodium 138 mmol/L (137-145); Squamous Epithelial Cell,Urine 9 /hpf (0-4); Total Bilirubin 0.8 mg/dL (0.2-1.3); Total Protein 7.4 g/dL (6.3-8.2); WBC,Urine 67 /hpf (0-5)
[2019-04-12 10:42] LABS: Appearance,Urine Clear (Clear); Color,Urine Yellow; Glucose,Urine (UA) Negative (Negative); Ketones,Urine Negative (Negative); Protein,Urine 1+ (Negative)
[2019-04-12 10:43] LABS: Bilirubin,Urine Negative (Negative); Blood,Urine Negative (Negative); Leukocyte Esterase,Urine Large (Negative); Nitrite,Urine Negative (Negative); Urobilinogen,Urine <2.0 mg/dL (<2.0)
--- NOTE | 2019-04-12 11:05 | US ---
EXAMINATION TYPE: US transvaginal DATE OF EXAM: 04/12/2019 COMPARISON: Previous study dated 09/24/2018. CLINICAL HISTORY: pain. Pelvic and back pain x couple days, irregular cycles, 2, para 2, hist ory of tubal ligation. TECHNIQUE: Transvaginal only ER exam. Date of LMP: 04/04/2019 EXAM MEASUREMENTS: Uterus: 8.7 x 4.0 x 5.0 cm Endometrial Stripe: 0.5 cm Right Ovary: 3.1 x 1.7 x 2.4 cm Left Ovary: 3.0 x 2.0 x 2.3 cm 1. Uterus: anteverted, mildly heterogeneous 2. Endometrium: wnl 3. Right Ovary: multiple follicles with largest measuring 1.2cm 4. Left Ovary: multiple follicles with largest measuring 1.6cm Spectral, color and waveform doppler imaging shows good arterial flow within the ovaries; unable to obtain venous flow within bilateral ovaries. 5. Bilateral Adnexa: wnl 6. Posterior cul-de-sac: wnl IMPRESSION: ESSENTIALLY NORMAL PELVIC ULTRASOUND.
--- NOTE | 2019-04-12 11:17 | ED ---
Abdominal Pain HPI - General Chief Complaint: Abdominal Pain Stated Complaint: abdominal pain Time Seen by Provider: 04/12/19 10:04 Source: patient, RN notes reviewed Mode of arrival: ambulatory Limitations: no limitations - History of Present Illness Initial Comments: 34-year-old female presents emergency Department with chief complaint of abdominal pain. Patient states it started last few days. Patient states she does have some urinary frequency hesitancy. No fevers or chills she has some low back pain denies any diarrhea, constipation, nausea vomiting denies any chance she's had a prior tubal ligation. She states she's had some sp otting but states she is due for her menstrual cycle. Patient offers no other complaints. - Related Data Previous Rx's Medication Instructions Recorded Cephalexin [Keflex] 500 mg PO Q8HR #21 cap 04/12/19 Allergies Allergy/AdvReac Type Severity Reaction Status Date / Time ciprofloxacin [From Cipro] Allergy Rash/Hives Verified 04/12/19 10:57 ciprofloxacin HCl Allergy Rash/Hives Verified 04/12/19 10:57 [From Cipro] Review of Systems ROS Statement: Those systems with pertinent positive or pertinent negative responses have been documented in the HPI. ROS Other: All systems not noted in ROS Statement are negative. Past Medical History Past Medical History: Asthma Additional Past Medical History / Comment(s): LYME DISEASE. ABNORMAL PAP SMEAR History of Any Multi-Drug Resistant Organisms: None Reported Past Surgical History: Tubal Ligation Additional Past Surgical History / Comment(s): lumpectomy right breast Past Anesthesia/Blood Transfusion Reactions: No Reported Reaction Past Psychological History: Depression Smoking Status: Former smoker Past Alcohol Use History: Occasional Past Drug Use History: None Reported - Past Family History Mother Family Medical History: No Reported History General Exam Limitations: no limitations General appearance: alert, in no apparent distress Head exam: Present: atraumatic, normocephalic, normal inspection Respiratory exam: Present: normal lung sounds bilaterally. Absent: respiratory distress, wheezes, rales, rhonchi, stridor Cardiovascular Exam: Present: regular rate, normal rhythm, normal heart sounds. Absent: systolic murmur, diastolic murmur, rubs, gallop, clicks GI/Abdominal exam: Present: soft, tenderness (Mild lower), normal bowel sounds. Absent: distended, guarding, rebound, rigid Back exam: Absent: CVA tenderness (R), CVA tenderness (L) Neurological exam: Present: alert, oriented X3, CN II-XII intact Course Vital Signs 04/12/19 09:58 Temperature 98 F Pulse Rate 98 Respiratory 18 Rate Blood Pressure 104/67 O2 Sat by Pulse 99 Oximetry Medical Decision Making - Medical Decision Making Ultrasound was unremarkable. Labs are unremarkable other than the urinalysis reveals evidence of urinary tract infection. Patient we discharged on antibiotics return parameters were discussed. - Lab Data Result diagrams: 04/12/19 10:16 04/12/19 10:16 Lab Results 04/12/19 04/12/19 04/12/19 Range/Units 10:16 10:16 10:16 WBC 5.5 (3.8-10.6) k/uL RBC 4.34 (3.80-5.40) m/uL Hgb 13.6 (11.4-16.0) gm/dL Hct 41.7 (34.0-46.0) % MCV 96.0 (80.0-100.0) fL MCH 31.3 (25.0-35.0) pg MCHC 32.6 (31.0-37.0) g/dL RDW 12.1 (11.5-15.5) % Plt Count 206 (150-450) k/uL Neutrophils % 62 % Lymphocytes % 26 % Monocytes % 6 % Eosinophils % 1 % Basophils % 1 % Neutrophils # 3.4 (1.3-7.7) k/uL Lymphocytes # 1.4 (1.0-4.8) k/uL Monocytes # 0.4 (0-1.0) k/uL Eosinophils # 0.1 (0-0.7) k/uL Basophils # 0.1 (0-0.2) k/uL Sodium 138 (137-145) mmol/L Potassium 4.0 (3.5-5.1) mmol/L Chloride 103 (98-107) mmol/L Carbon Dioxide 27 (22-30) mmol/L Anion Gap 8 mmol/L BUN 9 (7-17) mg/dL Creatinine 0.73 (0.52-1.04) mg/dL Est GFR (CKD-EPI)AfAm >90 (>60 ml/min/1.73 sqM) Est GFR (CKD-EPI)NonAf >90 (>60 ml/min/1.73 sqM) Glucose 80 (74-99) mg/dL Calcium 9.7 (8.4-10.2) mg/dL Total Bilirubin 0.8 (0.2-1.3) mg/dL AST 19 (14-36) U/L ALT 14 (4-34) U/L Alkaline Phosphatase 55 (38-126) U/L Total Protein 7.4 (6.3-8.2) g/dL Albumin 4.5 (3.5-5.0) g/dL Amylase 46 (30-110) U/L Lipase 59 (23-300) U/L Urine Color Urine Appearance (Clear) Urine pH (5.0-8.0) Ur Specific [place] (1.001-1.035) Urine Protein (Negative) Urine Glucose (UA) (Negative) Urine Ketones (Negative) Urine Blood (Negative) Urine Nitrite (Negative) Urine Bilirubin (Negative) Urine Urobilinogen (<2.0) mg/dL Ur Leukocyte Esterase (Negative) Urine RBC (0-5) /hpf Urine WBC (0-5) /hpf Ur Squamous Epith Cells (0-4) /hpf Urine Bacteria (None) /hpf Urine Mucus (None) /hpf Urine HCG, Qual Not Detected (Not Detectd) 04/12/19 Range/Units 10:16 WBC (3.8-10.6) k/uL RBC (3.80-5.40) m/uL Hgb (11.4-16.0) gm/dL Hct (34.0-46.0) % MCV (80.0-100.0) fL MCH (25.0-35.0) pg MCHC (31.0-37.0) g/dL RDW (11.5-15.5) % Plt Count (150-450) k/uL Neutrophils % % Lymphocytes % % Monocytes % % Eosinophils % % Basophils % % Neutrophils # (1.3-7.7) k/uL Lymphocytes # (1.0-4.8) k/uL Monocytes # (0-1.0) k/uL Eosinophils # (0-0.7) k/uL Basophils # (0-0.2) k/uL Sodium (137-145) mmol/L Potassium (3.5-5.1) mmol/L Chloride (98-107) mmol/L Carbon Dioxide (22-30) mmol/L Anion Gap mmol/L BUN (7-17) mg/dL Creatinine (0.52-1.04) mg/dL Est GFR (CKD-EPI)AfAm (>60 ml/min/1.73 sqM) Est GFR (CKD-EPI)NonAf (>60 ml/min/1.73 sqM) Glucose (74-99) mg/dL Calcium (8.4-10.2) mg/dL Total Bilirubin (0.2-1.3) mg/dL AST (14-36) U/L ALT (4-34) U/L Alkaline Phosphatase (38-126) U/L Total Protein (6.3-8.2) g/dL Albumin (3.5-5.0) g/dL Amylase (30-110) U/L Lipase (23-300) U/L Urine Color Yellow Urine Appearance Clear (Clear) Urine pH 6.0 (5.0-8.0) Ur Specific [place] 1.010 (1.001-1.035) Urine Protein 1+ H (Negative) Urine Glucose (UA) Negative (Negative) Urine Ketones Negative (Negative) Urine Blood Negative (Negative) Urine Nitrite Negative (Negative) Urine Bilirubin Negative (Negative) Urine Urobilinogen <2.0 (<2.0) mg/dL Ur Leukocyte Esterase Large (Negative) Urine RBC 6 H (0-5) /hpf Urine WBC 67 H (0-5) /hpf Ur Squamous Epith Cells 9 H (0-4) /hpf Urine Bacteria Rare H (None) /hpf Urine Mucus Many H (None) /hpf Urine HCG, Qual (Not Detectd) Disposition Clinical Impression: UTI (urinary tract infection) Disposition: HOME SELF-CARE Condition: Stable Instructions (If sedation given, give patient instructions): Urinary Tract Infection in Women (ED) Additional Instructions: Please return to the Emergency Department if symptoms worsen or any other concerns. Prescriptions: Cephalexin [Keflex] 500 mg PO Q8HR #21 cap Is patient prescribed a controlled substance at d/c from ED?: No Referrals: Farzad Urbie III, MD [Primary Care Provider] - 1-2 days Time of Disposition: 11:16
[2019-04-12 11:52] VITALS: BP 113/67; PULSE 78
== END 2019-04-12 11:56 | disposition home or self-care (01) ==
LOC: EC 09:54
DX: N39.0 Urinary tract infection, site not specified (principal); Z87.891 Personal history of nicotine dependence; Z88.1 Allergy status to other antibiotic agents; Z98.51 Tubal ligation status
CPT/HCPCS: 36415; 76830; 80053; 81001; 81025; 82150; 83690; 85025; 87086; 93975; 99284

== ENCOUNTER 2019-04-15 17:25 | Emergency (ER) | payer OTHER ==
[2019-04-15 18:39] LABS: WBC,Urine 107 /hpf (0-5)
[2019-04-15 18:40] LABS: Appearance,Urine Clear (Clear); Bacteria,Urine Occasional /hpf; Color,Urine Yellow; Mucus,Urine Many /hpf; RBC,Urine 3 /hpf (0-5); Specific Gravity,Urine 1.025 (1.001-1.035); Squamous Epithelial Cell,Urine 10 /hpf (0-4)
[2019-04-15 18:41] LABS: Bilirubin,Urine Negative (Negative); Blood,Urine Trace (Negative); Glucose,Urine (UA) Negative (Negative); Ketones,Urine Negative (Negative); Leukocyte Esterase,Urine Large (Negative); Nitrite,Urine Negative (Negative); Protein,Urine 1+ (Negative); Urobilinogen,Urine 0.2 mg/dL (<2.0)
[2019-04-15] MEDS ORDERED: cefTRIAXone IN SWFI 1,000 MG/10 ML SYRINGE IVP STA (20:13)
[2019-04-15 20:35] LABS: Basophils % (A) 0 %; Eosinophils # (A) 0.1 k/uL (0-0.7); Eosinophils % (A) 1 %; HCT 39.8 % (34.0-46.0); HGB 13.1 gm/dL (11.4-16.0); Lymphocytes # (A) 1.9 k/uL (1.0-4.8); Lymphocytes % (A) 24 %; MCH 31.2 pg (25.0-35.0); MCHC 32.9 g/dL (31.0-37.0); MCV 94.7 fL (80.0-100.0); Mean Platelet Volume 8.9; Monocytes # (A) 0.4 k/uL (0-1.0); Monocytes % (A) 5 %; Neutrophils # (A) 5.5 k/uL (1.3-7.7); Neutrophils % (A) 68 %; Platelet Count 178 k/uL (150-450); RDW 12.1 % (11.5-15.5); WBC 8.1 k/uL (3.8-10.6)
[2019-04-15 20:44] LABS: ALT 11 U/L (4-34); AST 19 U/L (14-36); African American GFR (CKD) >90 (>60 ml/min/1.73 sqM); Albumin 4.3 g/dL (3.5-5.0); Alkaline Phosphatase 53 U/L (38-126); Anion Gap 8 mmol/L; Blood Urea Nitrogen 7 mg/dL (7-17); Calcium 9.4 mg/dL (8.4-10.2); Carbon Dioxide 25 mmol/L (22-30); Chloride 102 mmol/L (98-107); Glucose 88 mg/dL (74-99); Non-African American GFR(CKD) >90 (>60 ml/min/1.73 sqM); Potassium 3.9 mmol/L (3.5-5.1); Sodium 135 mmol/L (137-145); Total Bilirubin 0.4 mg/dL (0.2-1.3)
--- NOTE | 2019-04-15 20:59 | CT ---
EXAMINATION TYPE: CT abdomen pelvis w con DATE OF EXAM: 04/15/2019 COMPARISON: 12/22/2012 HISTORY: Abdominal pain CT DLP: 519.1 mGycm Automated exposure control for dose reduction was used. CONTRAST: Performed with IV Contrast, patient injected with 100 mL of Isovue 300. Multiple axial sections were obtained from the diaphragm to the floor the pelvis with intravenous con trast. Lung bases are clear. There is no pleural effusion. Heart size is normal. Liver appears normal. The bile ducts are not dilated. Gallbladder appears normal. There is no pancrea tic mass. There is small calcified splenic granuloma. Stomach is intact. There is small hiatal hernia . There is no adrenal mass. Kidneys show satisfactory contrast opacification. There is no hydronephrosi s. Ureters are not dilated. Delayed images show normal renal excretion. There is no retroperitoneal a denopathy. Bladder distends smoothly. There is no inguinal hernia. There is no free fluid in the pelv is. Uterus is anteverted. Lumbar spine is intact. Disc spaces are normal. Appendix is medial to the cecum appears normal. There is no mesenteric edema. There is no ascites or free air. There is no sign of a bowel obstruction. Bony pelvis appears intact. IMPRESSION: Normal appendix. Negative CT scan abdomen and pelvis. No adverse change compared to old exam.
[2019-04-15] MEDS ORDERED: cefTRIAXone 250 MG VIAL IM STA (21:36)
[2019-04-15] MEDS ORDERED: AZITHROMYCIN 500 MG TAB PO STA (21:36)
--- NOTE | 2019-04-15 21:38 | ED ---
Abdominal Pain HPI - General Chief Complaint: Abdominal Pain Stated Complaint: Abd pain Time Seen by Provider: 04/15/19 19:16 Source: patient Mode of arrival: ambulatory Limitations: no limitations - History of Present Illness Initial Comments: 34-year-old female presenting today for chief complaint of right lower quadrant abdominal pain patient states that for the past 5 days she has had right lower abdominal pain. Patient denies dysuria urgency frequency hematuria but states she was diagnosed with a UTI. Patient states she has had some vaginal discharge and pain with sex. Patient denies any fever nausea vomiting diarrhea. Patient states she has slightly decreased appetite doesn't upper quadrant abdominal pain. Patient denies . Patient denies vaginal discharge. Patient states that she had an ultrasound was performed revealing no acute abnormality on Saturday. Patient states the pain is persistent presented to the emergency dep artment for second opinion upon arrival patient appears well no signs acute distress she states she is compliant with antibiotic regimen of Keflex. - Related Data Previous Rx's Medication Instructions Recorded Cephalexin [Keflex] 500 mg PO Q8HR #21 cap 04/12/19 Doxycycline [Vibramycin] 100 mg PO BID 14 Days #28 capsule 04/15/19 Sulfamethox-Tmp 800-160Mg [Bactrim 1 tab PO Q12HR 7 Days #14 tab 04/15/19 DS 800-160 mg] Allergies Allergy/AdvReac Type Severity Reaction Status Date / Time ciprofloxacin [From Cipro] Allergy Rash/Hives Verified 04/15/19 17:55 ciprofloxacin HCl Allergy Rash/Hives Verified 04/15/19 17:55 [From Cipro] Review of Systems ROS Statement: Those systems with pertinent positive or pertinent negative responses have been documented in the HPI. ROS Other: All systems not noted in ROS Statement are negative. Past Medical History Past Medical History: Asthma Additional Past Medical History / Comment(s): LYME DISEASE. ABNORMAL PAP SMEAR History of Any Multi-Drug Resistant Organisms: None Reported Past Surgical History: Tubal Ligation Additional Past Surgical History / Comment(s): lumpectomy right breast Past Anesthesia/Blood Transfusion Reactions: No Reported Reaction Past Psychological History: Depression Smoking Status: Former smoker Past Alcohol Use History: Occasional Past Drug Use History: None Reported - Past Family History Mother Family Medical History: No Reported History General Exam - General Exam Comments Initial Comments: General: The patient is awake and alert, in no distress Eye: +3 mm pupils are equal, round and reactive to light, extra-ocular movements are intact. No nystagmus. There is normal conjunctiva bilaterally. No signs of icterus. Ears, nose, mouth and throat: There are moist mucous membranes and no oral lesions. Neck: The neck is supple, there is no tenderness or JVD. Cardiovascular: There is a regular rate and rhythm. No murmur, rub or gallop is appreciated. Respiratory: Lungs are clear to auscultation, respirations are non-labored, breath sounds are equal. No wheezes, stridor, rales, or rhonchi. Gastrointestinal: Soft, non-distended, right lower quadrant tenderness to the abdomen, remaining abdomen is nontender without masses or organomegaly noted. There is no rebound or guarding present. Musculoskeletal: Normal ROM, no tenderness. Strength 5/5. Sensation intact. Radial pulses equal bilaterally 2+. Neurological: A&O x 3. CN II-XII intact grossly, There are no obvious motor or sensory deficits. Coordination appears grossly intact. Speech is normal. Skin: Skin is warm and dry and no rashes or lesions are noted. Psychiatric: Cooperative, appropriate mood & affect, normal judgment. Limitations: no limitations Course Vital Signs 04/15/19 04/15/19 17:52 21:49 Temperature 98.4 F 98.3 F Pulse Rate 73 78 Respiratory 18 16 Rate Blood Pressure 107/75 113/77 O2 Sat by Pulse 98 100 Oximetry Medical Decision Making - Medical Decision Making 34-year-old female presents today for chief complaint of right lower quadrant abdominal pain recent ultrasound revealing no acute abnormalities obvious on pelvic ultrasound. Patient has white blood cells in urine however culture revealed no typical bacteria that causing the tract infection more so or genital dmaeon. At this time perform pelvic examination revealed diffuse vaginal discharge no adnexal or cervical motion tenderness. Patient does have history of pain with sex. Patient be treated for pelvic inflammatory disease as CT of the abdomen pelvis revealed no abscess nor signs of appendicitis. Patient has a leukocytosis or fevers. We will culture urinalysis today continue patient on a ntibiotics as well as add doxycycline and a back regimen was changed from Keflex to Bactrim. Patient is agreeable to this care plan discharge at this time discussed case with any provider Dr. Wiggins who is agreeable to w/u and care plan. - Lab Data Result diagrams: 04/15/19 19:57 04/15/19 19:57 Lab Results 04/15/19 04/15/19 04/15/19 Range/Units 17:55 18:03 19:57 WBC 8.1 (3.8-10.6) k/uL RBC 4.20 (3.80-5.40) m/uL Hgb 13.1 (11.4-16.0) gm/dL Hct 39.8 (34.0-46.0) % MCV 94.7 (80.0-100.0) fL MCH 31.2 (25.0-35.0) pg MCHC 32.9 (31.0-37.0) g/dL RDW 12.1 (11.5-15.5) % Plt Count 178 (150-450) k/uL Neutrophils % 68 % Lymphocytes % 24 % Monocytes % 5 % Eosinophils % 1 % Basophils % 0 % Neutrophils # 5.5 (1.3-7.7) k/uL Lymphocytes # 1.9 (1.0-4.8) k/uL Monocytes # 0.4 (0-1.0) k/uL Eosinophils # 0.1 (0-0.7) k/uL Basophils # 0.0 (0-0.2) k/uL Sodium (137-145) mmol/L Potassium (3.5-5.1) mmol/L Chloride (98-107) mmol/L Carbon Dioxide (22-30) mmol/L Anion Gap mmol/L BUN (7-17) mg/dL Creatinine (0.52-1.04) mg/dL Est GFR (CKD-EPI)AfAm (>60 ml/min/1.73 sqM) Est GFR (CKD-EPI)NonAf (>60 ml/min/1.73 sqM) Glucose (74-99) mg/dL Calcium (8.4-10.2) mg/dL Total Bilirubin (0.2-1.3) mg/dL AST (14-36) U/L ALT (4-34) U/L Alkaline Phosphatase (38-126) U/L Total Protein (6.3-8.2) g/dL Albumin (3.5-5.0) g/dL Urine Color Yellow Urine Appearance Clear (Clear) Urine pH 6.0 (5.0-8.0) Ur Specific [place] 1.025 (1.001-1.035) Urine Protein 1+ H (Negative) Ur Protein Confirm RADIO MAINTAINER Urine Glucose (UA) Negative (Negative) Urine Ketones Negative (Negative) Urine Blood Trace H (Negative) Urine Nitrite Negative (Negative) Urine Bilirubin Negative (Negative) Urine Urobilinogen 0.2 (<2.0) mg/dL Ur Leukocyte Esterase Large (Negative) Urine RBC 3 (0-5) /hpf Urine WBC 107 H (0-5) /hpf Ur Squamous Epith Cells 10 H (0-4) /hpf Urine Bacteria Occasional H (None) /hpf Urine Mucus Many H (None) /hpf Urine HCG, Qual Not Detected (Not Detectd) Trichomonas Ag (Rapid) (Negative) 04/15/19 04/15/19 Range/Units 19:57 21:10 WBC (3.8-10.6) k/uL RBC (3.80-5.40) m/uL Hgb (11.4-16.0) gm/dL Hct (34.0-46.0) % MCV (80.0-100.0) fL MCH (25.0-35.0) pg MCHC (31.0-37.0) g/dL RDW (11.5-15.5) % Plt Count (150-450) k/uL Neutrophils % % Lymphocytes % % Monocytes % % Eosinophils % % Basophils % % Neutrophils # (1.3-7.7) k/uL Lymphocytes # (1.0-4.8) k/uL Monocytes # (0-1.0) k/uL Eosinophils # (0-0.7) k/uL Basophils # (0-0.2) k/uL Sodium 135 L (137-145) mmol/L Potassium 3.9 (3.5-5.1) mmol/L Chloride 102 (98-107) mmol/L Carbon Dioxide 25 (22-30) mmol/L Anion Gap 8 mmol/L BUN 7 (7-17) mg/dL Creatinine 0.53 (0.52-1.04) mg/dL Est GFR (CKD-EPI)AfAm >90 (>60 ml/min/1.73 sqM) Est GFR (CKD-EPI)NonAf >90 (>60 ml/min/1.73 sqM) Glucose 88 (74-99) mg/dL Calcium 9.4 (8.4-10.2) mg/dL Total Bilirubin 0.4 (0.2-1.3) mg/dL AST 19 (14-36) U/L ALT 11 (4-34) U/L Alkaline Phosphatase 53 (38-126) U/L Total Protein 7.0 (6.3-8.2) g/dL Albumin 4.3 (3.5-5.0) g/dL Urine Color Urine Appearance (Clear) Urine pH (5.0-8.0) Ur Specific [place] (1.001-1.035) Urine Protein (Negative) Ur Protein Confirm Urine Glucose (UA) (Negative) Urine Ketones (Negative) Urine Blood (Negative) Urine Nitrite (Negative) Urine Bilirubin (Negative) Urine Urobilinogen (<2.0) mg/dL Ur Leukocyte Esterase (Negative) Urine RBC (0-5) /hpf Urine WBC (0-5) /hpf Ur Squamous Epith Cells (0-4) /hpf Urine Bacteria (None) /hpf Urine Mucus (None) /hpf Urine HCG, Qual (Not Detectd) Trichomonas Ag (Rapid) Negative (Negative) Disposition Clinical Impression: Pelvic pain, Vaginal discharge Disposition: HOME SELF-CARE Condition: Good Instructions (If sedation given, give patient instructions): Pelvic Inflammatory Disease (ED) Additional Instructions: Please use medication as discussed. Please follow-up with family doctor in the next 2 days. Please return to emergency room if the symptoms increase or worsen or for any other concerns. Prescriptions: Sulfamethox-Tmp 800-160Mg [Bactrim DS 800-160 mg] 1 tab PO Q12HR 7 Days #14 tab Doxycycline [Vibramycin] 100 mg PO BID 14 Days #28 capsule Is patient prescribed a controlled substance at d/c from ED?: No Referrals: Farzad Uribe III, MD [Primary Care Provider] - 1-2 days Time of Disposition: 21:38
[2019-04-15 21:50] VITALS: BP 113/77; PULSE 78; RESP 16; TEMP 98.3
== END 2019-04-15 21:53 | disposition home or self-care (01) ==
LOC: EC 17:25
DX: N73.9 Female pelvic inflammatory disease, unspecified (principal); N39.0 Urinary tract infection, site not specified; R63.8 Other symptoms and signs concerning food and fluid intake; Z87.891 Personal history of nicotine dependence; Z88.1 Allergy status to other antibiotic agents; Z98.51 Tubal ligation status; Z53.8 Procedure and treatment not carried out for other reasons
CPT/HCPCS: 36415; 80053; 85025; 81001; 81025; 87808; 87491; 87591; 87070; 87086; 74177; 99284; 96374; J0696; Q9967

== ENCOUNTER 2019-04-21 11:50 | Observation (INO) | payer OTHER ==
--- NOTE | 2019-04-21 13:09 | P.HPIM ---
History of Present Illness This is a pleasant 34 years old female with past medical history of asthma, depression, Lyme disease, status post tubal ligation and right breast lumpectomy Patient has 2 kids, she presents because of 2 weeks of lower abdominal pain and white vaginal discharge, she was in the emergency room twice, her culture came back positive for chlamydia and she was started and given 1 dose of Zithromax intramuscularly, she felt better initially however last that she started having fever with chills. Her pain is mainly in the lower abdomen, more on the right side, felt like throbbing and cramping, radiating to the back about 6/10, with no nausea vomiting, no change in urine or bowel habits. Patient does not smoke, no alcohol or illicit drugs I received . call from Dr. Uribe office to admit this patient directly to the hospital due to pelvic inflammatory disease and cervical motion tenderness Review of Systems CONSTITUTIONAL: No fever, no malaise, no fatigue. HEENT: No recent visual problems or hearing problems. Denied any sore throat. CARDIOVASCULAR: No orthopnea, PND, no palpitations, no syncope. PULMONARY: No shortness of breath, no cough, no hemoptysis. GASTROINTESTINAL: No diarrhea, no nausea, no vomiting, no abdominal pain. Normoactive bowel sounds. NEUROLOGICAL: No headaches, no weakness, no numbness. HEMATOLOGICAL: Denies any bleeding or petechiae. GENITOURINARY: Denies any burning micturition, frequency, or urgency. MUSCULOSKELETAL/RHEUMATOLOGICAL: Denies any joint pain, swelling, or any muscle pain. ENDOCRINE: Denies any polyuria or polydipsia. Past Medical History Past Medical History: Asthma Additional Past Medical History / Comment(s): LYME DISEASE. ABNORMAL PAP SMEAR History of Any Multi-Drug Resistant Organisms: None Reported Past Surgical History: Tubal Ligation Additional Past Surgical History / Comment(s): lumpectomy right breast Past Anesthesia/Blood Transfusion Reactions: No Reported Reaction Past Psychological History: Depression Smoking Status: Former smoker Past Alcohol Use History: Occasional Past Drug Use History: None Reported - Past Family History Mother Family Medical History: No Reported History Medications and Allergies Home Medications Medication Instructions Recorded Confirmed Type Cephalexin [Keflex] 500 mg PO Q8HR #21 cap 04/12/19 Rx Doxycycline [Vibramycin] 100 mg PO BID 14 Days #28 capsule 04/15/19 Rx Sulfamethox-Tmp 800-160Mg [Bactrim 1 tab PO Q12HR 7 Days #14 tab 04/15/19 Rx DS 800-160 mg] Allergies Allergy/AdvReac Type Severity Reaction Status Date / Time ciprofloxacin [From Cipro] Allergy Rash/Hives Verified 04/15/19 17:55 ciprofloxacin HCl Allergy Rash/Hives Verified 04/15/19 17:55 [From Cipro] Physical Exam GENERAL: The patient is alert and oriented x3, not in any acute distress. Well developed, well nourished. HEENT: Pupils are round and equally reacting to light. EOMI. No scleral icterus. No conjunctival pallor. Normocephalic, atraumatic. No pharyngeal erythema. No thyromegaly. CARDIOVASCULAR: S1 and S2 present. No murmurs, rubs, or gallops. PULMONARY: Chest is clear to auscultation, no wheezing or crackles. -ABDOMEN: Soft, mild lower abdominal tenderness, more on the right side, no rebound tenderness or guarding, nondistended, normoactive bowel sounds. No palpable organomegaly. MUSCULOSKELETAL: No joint swelling or deformity. EXTREMITIES: No cyanosis, clubbing, or pedal edema. NEUROLOGICAL: Gross neurological examination did not reveal any focal deficits. SKIN: No rashes. No petechiae Assessment and Plan Assessment: Pelvic inflammatory disease Asthma, not acute issue Depression, acute issue History of Lyme disease Status post tubal ligation Status post right breast lumpectomy Plan: This is a pleasant 34 years old female. Check hCG, start iv antibiotic, check culture results, check labs, consult RESTORATION TECHNICIAN. Labs and medication were reviewed.. Continue same treatment. Continue with symptomatic treatment. Resume home medication. Monitor lytes and vitals. DVT and GI prophylaxis. Further recommendations of the clinical course of the patient DVT prophylaxis: Subcutaneous heparin GI Prophylaxis: Pepcid Prognosis is guarded
[2019-04-21 13:59] LABS: Basophils % (A) 0 %; Eosinophils # (A) 0.2 k/uL (0-0.7); Eosinophils % (A) 3 %; HCT 40.7 % (34.0-46.0); HGB 13.3 gm/dL (11.4-16.0); Lymphocytes # (A) 0.3 k/uL (1.0-4.8); Lymphocytes % (A) 7 %; MCH 30.9 pg (25.0-35.0); MCHC 32.6 g/dL (31.0-37.0); MCV 94.9 fL (80.0-100.0); Mean Platelet Volume 8.7; Monocytes # (A) 0.3 k/uL (0-1.0); Monocytes % (A) 7 %; Neutrophils # (A) 3.8 k/uL (1.3-7.7); Neutrophils % (A) 80 %; Platelet Count 126 k/uL (150-450); RBC 4.29 m/uL (3.80-5.40); WBC 4.8 k/uL (3.8-10.6)
[2019-04-21 14:05] LABS: Appearance,Urine Clear (Clear); Bilirubin,Urine Negative (Negative); Blood,Urine Negative (Negative); Color,Urine Yellow; Glucose,Urine (UA) Negative (Negative); Ketones,Urine 1+ (Negative); Leukocyte Esterase,Urine Negative (Negative); Nitrite,Urine Negative (Negative); Protein,Urine Trace (Negative); Specific Gravity,Urine 1.033 (1.001-1.035); Urobilinogen,Urine <2.0 mg/dL (<2.0)
[2019-04-21 14:09] LABS: Partial Thromboplastin Time 23.4 sec (22.0-30.0); Prothrombin Time 10.7 sec (9.0-12.0)
[2019-04-21 14:10] LABS: ALT 10 U/L (4-34); AST 19 U/L (14-36); African American GFR (CKD) >90 (>60 ml/min/1.73 sqM); Albumin 4.3 g/dL (3.5-5.0); Alkaline Phosphatase 60 U/L (38-126); Anion Gap 11 mmol/L; Bilirubin,Unconjugated 0.4 mg/dL (0.0-1.1); Blood Urea Nitrogen 13 mg/dL (7-17); Calcium 9.2 mg/dL (8.4-10.2); Carbon Dioxide 22 mmol/L (22-30); Chloride 103 mmol/L (98-107); Glucose 81 mg/dL (74-99); HCG,Qualitative Serum Not Detected; Magnesium 2.1 mg/dL (1.6-2.3); Non-African American GFR(CKD) >90 (>60 ml/min/1.73 sqM); Potassium 4.2 mmol/L (3.5-5.1); Sodium 136 mmol/L (137-145); Total Bilirubin 0.3 mg/dL (0.2-1.3); Total Protein 7.1 g/dL (6.3-8.2)
[2019-04-21] MEDS: DEXTROSE 5%-0.9% NACL 1,000 ML IV SCH (14:30)
[2019-04-21] MEDS ORDERED: IBUPROFEN 400 MG TAB PO PRN (16:59)
[2019-04-21] MEDS: AMPICILLIN-SULBACTAM 3 GM in SODIUM CHLORIDE 0.9% 100 ML IVPB SCH (17:52)
[2019-04-21] MEDS: DOXYCYCLINE 100 MG in SODIUM CHLORIDE 0.9% 100 ML IVPB SCH (18:41)
[2019-04-21] MEDS: ACETAMINOPHEN TAB 325 MG TAB PO PRN (20:39)
[2019-04-21] MEDS: FAMOTIDINE 20 MG/2 ML VIAL IV SCH (20:40)
[2019-04-21] MEDS: HEPARIN SODIUM,PORCINE 5,000 UNIT/ML 1 ML VIAL SQ SCH (20:41)
[2019-04-21] MEDS ORDERED: MELATONIN 5 MG TABLET PO PRN (21:26)
[2019-04-22] MEDS: AMPICILLIN-SULBACTAM 3 GM in SODIUM CHLORIDE 0.9% 100 ML IVPB SCH ×3 (00:47→18:09)
[2019-04-22] MEDS: DEXTROSE 5%-0.9% NACL 1,000 ML IV SCH ×2 (00:49→15:20)
--- NOTE | 2019-04-22 06:32 | P.PN ---
Subjective This is a pleasant 34 years old female with past medical history of asthma, depression, Lyme disease, status post tubal ligation and right breast lumpectomy Patient has 2 kids, she presents because of 2 weeks of lower abdominal pain and white vaginal discharge, she was in the emergency room twice, her culture came back positive for chlamydia and she was started and given 1 dose of Zithromax intramuscularly, she felt better initially however last that she started having fever with chills. Her pain is mainly in the lower abdomen, more on the right side, felt like throbbing and cramping, radiating to the back about 6/10, with no nausea vomitin g, no change in urine or bowel habits. Patient does not smoke, no alcohol or illicit drugs I received . call from Dr. Uribe office to admit this patient directly to the hospital due to pelvic inflammatory disease and cervical motion tenderness 04/22/2019 Patient feels a little better with abdominal pain in the forearm and right side of the abdomen is about 5/10 status improved compared to yesterday, she still have vaginal discharge. No nausea vomiting. No fever. No chest pain or dyspnea. She still hemodynamically stable, afebrile, blood pressure 90/54. Labs from today still pending. Patient is to be followed by FLIGHT ATTENDANT/INFLIGHT MANAGER and infectious disease will go to follow-up with her today. In the meantime she remains on Unasyn and doxycycline, she is also on normal saline at 75 mL/h. ROS CONSTITUTIONAL: No fever, no malaise, no fatigue. HEENT: No recent visual problems or hearing problems. Denied any sore throat. CARDIOVASCULAR: No orthopnea, PND, no palpitations, no syncope. PULMONARY: No shortness of breath, no cough, no hemoptysis. GASTROINTESTINAL: No diarrhea, no nausea, no vomiting, no abdominal pain. Normoactive bowel sounds. NEUROLOGICAL: No headaches, no weakness, no numbness. HEMATOLOGICAL: Denies any bleeding or petechiae. GENITOURINARY: Denies any burning micturition, frequency, or urgency. MUSCULOSKELETAL/RHEUMATOLOGICAL: Denies any joint pain, swelling, or any muscle pain. ENDOCRINE: Denies any polyuria or polydipsia. Objective - Vital Signs Vital signs: Vital Signs Temp 98.5 F 04/22/19 00:43 Pulse 86 04/22/19 00:43 Resp 18 04/22/19 00:43 BP 92/54 04/22/19 00:43 Pulse Ox 98 04/22/19 00:43 Intake & Output 04/21/19 04/21/19 04/22/19 06:59 18:59 06:59 Intake Total 400 800 Balance 400 800 Weight 52.163 kg Intake: Oral 400 800 Other: Voiding Method Toilet Toilet # Voids 1 1 - Labs CBC & Chem 7: 04/21/19 13:15 04/21/19 13:15 Labs: Abnormal Lab Results - Last 24 Hours (Table) 04/21/19 04/21/19 04/21/19 Range/Units 13:15 13:15 13:15 Plt Count 126 L (150-450) k/uL Lymphocytes # 0.3 L (1.0-4.8) k/uL Sodium 136 L (137-145) mmol/L Procalcitonin 0.10 H (0.02-0.09) ng/mL Urine Protein (Negative) Urine Ketones (Negative) 04/21/19 Range/Units 13:40 Plt Count (150-450) k/uL Lymphocytes # (1.0-4.8) k/uL Sodium (137-145) mmol/L Procalcitonin (0.02-0.09) ng/mL Urine Protein Trace H (Negative) Urine Ketones 1+ H (Negative) Assessment and Plan Assessment: Pelvic inflammatory disease Asthma, not acute issue Depression, acute issue History of Lyme disease Status post tubal ligation Status post right breast lumpectomy Plan: This is a pleasant 34 years old female. Check hCG, start iv antibiotic, check culture results, check labs, consult ROTARY SHEAR WORKER HELPER. Labs and medication were reviewed.. Continue same treatment. Continue with symptomatic treatment. Resume home medication. Monitor lytes and vitals. DVT and GI prophylaxis. Further recommendations of the clinical course of the patient DVT prophylaxis: Subcutaneous heparin GI Prophylaxis: Pepcid Prognosis is guarded
[2019-04-22] MEDS: ACETAMINOPHEN TAB 325 MG TAB PO PRN ×3 (07:17→23:09)
[2019-04-22 07:18] LABS: HCT 35.9 % (34.0-46.0); HGB 12.2 gm/dL (11.4-16.0); MCH 32.7 pg (25.0-35.0); MCHC 34.1 g/dL (31.0-37.0); MCV 95.9 fL (80.0-100.0); Mean Platelet Volume 9.2; Platelet Count 101 k/uL (150-450); RBC 3.74 m/uL (3.80-5.40); WBC 2.2 k/uL (3.8-10.6)
[2019-04-22 07:32] LABS: African American GFR (CKD) >90 (>60 ml/min/1.73 sqM); Anion Gap 5 mmol/L; Blood Urea Nitrogen 7 mg/dL (7-17); Calcium 8.5 mg/dL (8.4-10.2); Carbon Dioxide 23 mmol/L (22-30); Chloride 109 mmol/L (98-107); Glucose 99 mg/dL (74-99); Non-African American GFR(CKD) >90 (>60 ml/min/1.73 sqM); Potassium 4.3 mmol/L (3.5-5.1); Sodium 137 mmol/L (137-145)
[2019-04-22] MEDS: FAMOTIDINE 20 MG/2 ML VIAL IV SCH ×2 (08:01→21:25)
[2019-04-22] MEDS: HEPARIN SODIUM,PORCINE 5,000 UNIT/ML 1 ML VIAL SQ SCH ×2 (08:01→21:25)
[2019-04-22 08:13] LABS: Band Neutrophils % 3 %; Eosinophils # (M) 0.11 k/uL (0-0.7); Lymphocytes # (M) 0.59 k/uL (1.0-4.8); Monocytes # (M) 0.51 k/uL (0-1.0); Neutrophils % (M) 42 %; Nucleated Red Blood Cells 0 /100 WBC (0-0); Total Cells Counted 100
--- NOTE | 2019-04-22 09:05 | P.OBCN ---
History of Present Illness Consult date: 04/22/19 Reason for consult: pelvic pain (recent chlamydia infection) Chief complaint: low pelvic discomfort History of present illness: 34-year-old was diagnosed with chlamydia about a week ago. She was given Zithromax 1 g. She is also been given doxycycline and Keflex and Bactrim for a urinary tract infection recently. On Saturday she had an increase of right lower quadrant tenderness and a fever and chills at home. She made an appointment with the nurse practitioner Dr. Uribe's office. Since she was cloth bleaching range tender they advised she be admitted to rule out PID and for possible IV antibiotics. Her discharge is unchanged, thick and white. She denies any vaginal itching or odor. Since she was recently tested positive for chlamydia and just treated, if I did cultures right now they would still look positive for chlamydia. She has not had a fever here, she has normal white count here, and her pain is now co mpletely resolved. Review of Systems All systems: negative Constitutional: Denies chills, Denies fever Eyes: denies blurred vision, denies pain Ears, nose, mouth and throat: Denies headache, Denies sore throat Cardiovascular: Denies chest pain, Denies shortness of breath Respiratory: Denies cough Gastrointestinal: Denies abdominal pain, Denies diarrhea, Denies nausea, Denies vomiting Genitourinary: Denies dysuria, Denies hematuria Musculoskeletal: Denies myalgias Integumentary: Denies pruritus, Denies rash Neurological: Denies numbness, Denies weakness Psychiatric: Denies anxiety, Denies depression Endocrine: Denies fatigue, Denies weight change Past Medical History Past Medical History: Asthma Additional Past Medical History / Comment(s): LYME DISEASE History of Any Multi-Drug Resistant Organisms: None Reported Past Surgical History: Tubal Ligation Additional Past Surgical History / Comment(s): lumpectomy right breast Past Anesthesia/Blood Transfusion Reactions: No Reported Reaction Past Psychological History: Depression Smoking Status: Former smoker Past Alcohol Use History: Occasional Past Drug Use History: None Reported - Past Family History Mother Family Medical History: No Reported History Medications and Allergies Home Medications Medication Instructions Recorded Confirmed Type Doxycycline [Vibramycin] 100 mg PO BID 14 Days #28 capsule 04/15/19 04/21/19 Rx Sulfamethox-Tmp 800-160Mg [Bactrim 1 tab PO Q12HR 7 Days #14 tab 04/15/19 04/21/19 Rx DS 800-160 mg] Allergies Allergy/AdvReac Type Severity Reaction Status Date / Time ciprofloxacin [From Cipro] Allergy Rash/Hives Verified 04/21/19 14:04 ciprofloxacin HCl Allergy Rash/Hives Verified 04/21/19 14:04 [From Cipro] Exam Osteopathic Statement: *. No significant issues noted on an osteopathic structural exam other than those noted in the History and Physical/Consult. Vital Signs Temp Pulse Pulse Resp BP BP Pulse Ox 04/22/19 08:07 98.3 F 81 18 91/56 100 04/22/19 00:43 98.5 F 86 18 92/54 98 04/21/19 20:35 98.3 F 95 18 104/66 98 04/21/19 17:24 98.4 F 103 H 16 99/64 99 04/21/19 12:30 98.1 F 96 16 101/65 Intake and Output 04/21/19 04/22/19 04/22/19 22:59 06:59 14:59 Intake Total 300 500 Balance 300 500 Intake: Oral 300 500 Other: Voiding Method Toilet Toilet # Voids 1 1 Heart: Regular rate and rhythm Lungs: Clear to auscultation bilaterally Abdomen: Soft, nontender Extremities: Negative Homans sign Vaginal exam: There is minimal white discharge noted at the os. There is no erythema or inflammation. Results Result Diagrams: 04/22/19 07:00 04/22/19 07:00 Abnormal Lab Results - Last 24 Hours (Table) 04/21/19 04/21/19 04/21/19 Range/Units 13:15 13:15 13:15 WBC (3.8-10.6) k/uL RBC (3.80-5.40) m/uL Plt Count 126 L (150-450) k/uL Neutrophils # (Manual) (1.3-7.7) k/uL Lymphocytes # 0.3 L (1.0-4.8) k/uL Lymphocytes # (Manual) (1.0-4.8) k/uL Sodium 136 L (137-145) mmol/L Chloride (98-107) mmol/L Procalcitonin 0.10 H (0.02-0.09) ng/mL Urine Protein (Negative) Urine Ketones (Negative) 04/21/19 04/22/19 04/22/19 Range/Units 13:40 07:00 07:00 WBC 2.2 L (3.8-10.6) k/uL RBC 3.74 L (3.80-5.40) m/uL Plt Count 101 L (150-450) k/uL Neutrophils # (Manual) 0.90 L (1.3-7.7) k/uL Lymphocytes # (1.0-4.8) k/uL Lymphocytes # (Manual) 0.59 L (1.0-4.8) k/uL Sodium (137-145) mmol/L Chloride 109 H (98-107) mmol/L Procalcitonin (0.02-0.09) ng/mL Urine Protein Trace H (Negative) Urine Ketones 1+ H (Negative) Assessment and Plan (1) Pelvic pain Current Visit: No Status: Acute Code(s): R10.2 - PELVIC AND PERINEAL PAIN SNOMED Code(s): 63680593 (2) Vaginal discharge Current Visit: No Status: Acute Code(s): N89.8 - OTHER SPECIFIED NONINFLAMMATORY DISORDERS OF VAGINA SNOMED Code(s): 722015046 Plan: 1.The white discharge could be due to inflammation, the recent chlamydial exposure and treatment, or vaginal Amy from antibiotic use. Since her symptoms have improved, I would recommend that she not be treated with any fu rther antibiotics at this time. I recommend she follow up with me outpatient on May 11 as scheduled for follow-up cultures.
[2019-04-22] MEDS: DOXYCYCLINE 100 MG in SODIUM CHLORIDE 0.9% 100 ML IVPB SCH ×2 (09:33→21:25)
[2019-04-22] MEDS: diphenhydrAMINE 50 MG/ML 1 ML VIAL IVP PRN ×2 (16:49→22:32)
[2019-04-22] MEDS ORDERED: methylPREDNISolone SOD SUCCI 125 MG/2 ML VIAL IV STA (16:50)
[2019-04-22 20:28] VITALS: RESP 18
--- NOTE | 2019-04-22 22:50 | P.CONS ---
History of Present Illness - Reason for Consult Consult date: 04/22/19 PID Requesting physician: Cuco E Nai - Chief Complaint right lower pelvic pain and drainage x week - History of Present Illness Patient is a 34-year-old female who seems to have problem with pelvic pain and vaginal drainage started about 2 weeks ago for the patient was evaluated at [facility] ER patient had did have urine sample PCR positive for chlamydia on April 15, 2019 gonorrhea and trichomonas was negative patient has been treated with Zithromax 1 g x 1 apparently the patient also has been treated with Keflex Bactrim toxin for possible ureteral infection recently patient did have a CT of abdominal pelvis as well as pelvic ultrasound on her ER visit both were negative patient has been evaluated at her primary care physician office and apparently the patient was noted to be tender in the right lower quadrant area with concern for pelvic inflammatory disease the patient has been admitted directly to the hospital patient was started on Unasyn and doxycycline IV admitted to the hospital infectious disease was consulted for further recommendation for antibiotic, patient denies having any fever or any chills main symptom has been discomfort in the right lower abdominal area more of a dull aching pain to the left and and no radiation no nausea no vomiting no diarrhea and no urinary symptoms. Review of Systems Positive point has been mentioned in HPI rest of the systems are negative Past Medical History Past Medical History: Asthma Additional Past Medical History / Comment(s): LYME DISEASE History of Any Multi-Drug Resistant Organisms: None Reported Past Surgical History: Tubal Ligation Additional Past Surgical History / Comment(s): lumpectomy right breast Past Anesthesia/Blood Transfusion Reactions: No Reported Reaction Past Psychological History: Depression Smoking Status: Former smoker Past Alcohol Use History: Occasional Past Drug Use History: None Reported - Past Family History Mother Family Medical History: No Reported History Medications and Allergies Home Medications Medication Instructions Recorded Confirmed Type Doxycycline [Vibramycin] 100 mg PO BID 14 Days #28 capsule 04/15/19 04/21/19 Rx Sulfamethox-Tmp 800-160Mg [Bactrim 1 tab PO Q12HR 7 Days #14 tab 04/15/19 04/21/19 Rx DS 800-160 mg] Allergies Allergy/AdvReac Type Severity Reaction Status Date / Time ampicillin [From Unasyn] Allergy Intermediate Rash/Hives Verified 04/22/19 18:21 sulbactam [From Unasyn] Allergy Intermediate Rash/Hives Verified 04/22/19 18:21 ciprofloxacin [From Cipro] Allergy Rash/Hives Verified 04/21/19 14:04 ciprofloxacin HCl Allergy Rash/Hives Verified 04/21/19 14:04 [From Cipro] Physical Exam Vitals: Vital Signs Temp Pulse Resp BP BP Pulse Ox 04/22/19 08:07 98.3 F 81 18 91/56 100 04/22/19 00:43 98.5 F 86 18 92/54 98 04/21/19 20:35 98.3 F 95 18 104/66 98 04/21/19 17:24 98.4 F 103 H 16 99/64 99 Intake and Output 04/21/19 04/22/19 04/22/19 22:59 06:59 14:59 Intake Total 300 500 Balance 300 500 Intake: Oral 300 500 Other: Voiding Method Toilet Toilet # Voids 1 1 2 GENERAL DESCRIPTION: Middle-aged female lying in bed, no distress. No tachypnea or accessory muscle of respiration use. HEENT: Shows Pallor , no scleral icterus. Oral mucous membrane is dry. NECK: Trachea central, no thyromegaly. LUNGS: Unlabored breathing. Clear to auscultation anteriorly. No wheeze or crackle. HEART: S1, S2, regular rate and rhythm. ABDOMEN: Soft, minimal right lower quadrant tenderness , no guarding or rigidity EXTREMITIES: No edema of feet. SKIN: No rash, no masses palpable. NEUROLOGICAL: The patient is awake, alert, oriented x3, mood and affect normal. Results CBC & Chem 7: 04/22/19 07:00 04/22/19 07:00 Labs: Abnormal Lab Results - Last 24 Hours (Table) 04/21/19 04/21/19 04/21/19 Range/Units 13:15 13:15 13:15 WBC (3.8-10.6) k/uL RBC (3.80-5.40) m/uL Plt Count 126 L (150-450) k/uL Neutrophils # (Manual) (1.3-7.7) k/uL Lymphocytes # 0.3 L (1.0-4.8) k/uL Lymphocytes # (Manual) (1.0-4.8) k/uL Sodium 136 L (137-145) mmol/L Chloride (98-107) mmol/L Procalcitonin 0.10 H (0.02-0.09) ng/mL Urine Protein (Negative) Urine Ketones (Negative) 04/21/19 04/22/19 04/22/19 Range/Units 13:40 07:00 07:00 WBC 2.2 L (3.8-10.6) k/uL RBC 3.74 L (3.80-5.40) m/uL Plt Count 101 L (150-450) k/uL Neutrophils # (Manual) 0.90 L (1.3-7.7) k/uL Lymphocytes # (1.0-4.8) k/uL Lymphocytes # (Manual) 0.59 L (1.0-4.8) k/uL Sodium (137-145) mmol/L Chloride 109 H (98-107) mmol/L Procalcitonin (0.02-0.09) ng/mL Urine Protein Trace H (Negative) Urine Ketones 1+ H (Negative) Assessment and Plan Assessment: patient being admitted to hospital with right lower quadrant pain and tenderness with concern for possible PID in this patient has been recently diagnosed and treated for chlamydia with cervical culture has been positive for Gardnerella v aginalis for the patient has not received an antibiotic therapy and may be playing a role in some of her symptomatology. (1) Bacterial vaginosis Current Visit: Yes Status: Acute Code(s): N76.0 - ACUTE VAGINITIS; B96.89 - OTH BACTERIAL AGENTS THE CAUSE OF DISEASES [facility]SD [facility] SNOMED Code(s): 096330962 Plan: 1-we will add Flagyl 500 mg twice daily x 7 days 2- Gentle IV fluid and symptomatic treatment of pain We will follow on clinical condition and cultures to further adjust medication if needed Thank you for this consultation we will follow the patient along with you Time with Patient: Greater than 30
[2019-04-23] MEDS: DEXTROSE 5%-0.9% NACL 1,000 ML IV SCH (01:43)
[2019-04-23] MEDS ORDERED: diphenhydrAMINE 25 MG CAP PO PRN (07:11)
[2019-04-23 08:27] LABS: Basophils % (A) 1 %; Eosinophils % (A) 0 %; HGB 12.6 gm/dL (11.4-16.0); Lymphocytes # (A) 1.1 k/uL (1.0-4.8); Lymphocytes % (A) 16 %; MCH 31.8 pg (25.0-35.0); MCHC 33.2 g/dL (31.0-37.0); MCV 95.6 fL (80.0-100.0); Mean Platelet Volume 9.1; Monocytes # (A) 0.3 k/uL (0-1.0); Monocytes % (A) 4 %; Neutrophils # (A) 5.1 k/uL (1.3-7.7); Neutrophils % (A) 76 %; Platelet Count 128 k/uL (150-450); RBC 3.98 m/uL (3.80-5.40); WBC 6.7 k/uL (3.8-10.6)
[2019-04-23] MEDS: FAMOTIDINE 20 MG/2 ML VIAL IV SCH (08:33)
[2019-04-23 08:38] LABS: African American GFR (CKD) >90 (>60 ml/min/1.73 sqM); Anion Gap 11 mmol/L; Blood Urea Nitrogen 5 mg/dL (7-17); Calcium 9.5 mg/dL (8.4-10.2); Carbon Dioxide 19 mmol/L (22-30); Chloride 105 mmol/L (98-107); Glucose 169 mg/dL (74-99); Non-African American GFR(CKD) >90 (>60 ml/min/1.73 sqM); Potassium 3.9 mmol/L (3.5-5.1); Sodium 135 mmol/L (137-145)
[2019-04-23 08:45] VITALS: BP 100/64; PULSE 76; TEMP 98.2
[2019-04-23] MEDS ORDERED: HEPARIN SODIUM,PORCINE 5,000 UNIT/ML 1 ML VIAL SQ SCH (09:00)
[2019-04-23] MEDS ORDERED: DOXYCYCLINE 100 MG CAP PO SCH (09:00)
[2019-04-23] MEDS ORDERED: metroNIDAZOLE 500 MG TAB PO SCH (09:00)
[2019-04-23 09:31] LABS: C Reactive Protein 13.4 mg/L (<10.0)
--- NOTE | 2019-04-23 11:03 | PN ---
PROGRESS NOTE DATE OF SERVICE: 04/23/2019 REASON FOR FOLLOWUP: Right lower abdominal pain and bacterial vaginosis. INTERVAL HISTORY: The patient is currently afebrile. Apparently the patient did seem to have problem with a rash from IV Unasyn that has been discontinued. She has been tolerating her oral Flagyl. As of this morning, her right lower quadrant abdominal pain has improved. Denies having any chest pain, shortness of breath or cough and no diarrhea. PHYSICAL EXAMINATION: Blood pressure 100/64 with a pulse of 76, temperature 98.2. She is 100% on room air. General description is a middle-aged female, lying in bed in no distress. RESPIRATORY SYSTEM: Unlabored breathing, clear to auscultation anteriorly. HEART: S1, S2. Regular rate and rhythm. ABDOMEN: Soft, no tenderness. LABS: Hemoglobin 1262, white count 6.7, creatinine 0.52. Blood culture has been negative. DIAGNOSTIC IMPRESSION AND PLAN: Patient with right lower quadrant abdominal pain likely secondary to bacterial vaginosis. Patient currently on oral Flagyl to continue for 7 days. To monitor clinical course closely. Continue with supportive care. MMODL / IJN: [id number] / KARLEY
--- NOTE | 2019-04-23 21:49 | P.DS ---
Providers Date of admission: 04/21/19 12:19 Attending physician: Cuco Trimble MD Consults: 04/21/19 13:29 Consult Physician Urgent Consulting Provider: Urvashi Valerio Consult Reason/Comments: pos STD Do you want consulting provider notified?: Yes Placement Type Exists?: Yes 04/21/19 17:11 Consult Physician Routine Consulting Provider: Odilia Bland Consult Reason/Comments: PID Do you want consulting provider notified?: Yes Primary care physician: Farzad Uribe Hospital Course: Diagnoses: Pelvic inflammatory disease Bacterial vaginosis Asthma, not acute issue Depression, acute issue History of Lyme disease Status post tubal ligation Status post right breast lumpectomy Hospital course: This is a pleasant 34 years old female with past medical history of asthma, depression, Lyme disease, status post tubal ligation and right breast lumpectomy Patient has 2 kids, she presents because of 2 weeks of lower abdominal pain and white vaginal discharge, she was in the emergency room twice, her culture came back positive for chlamydia and she was given 1 dose of Zithromax intramuscularly, she felt better initially however last that she started having fever with chills and lower abdominal pain and some mild vaginal discharge. She went to see her PCP office Dr. Uribe, the nurse practitioner in hospital some cervical tenderness and referred her to the hospital last Saturday admission for possible pelvic inflammatory disease. On admission patient was treated with doxycycline and Unasyn, recurrent on Flagyl was added, patient has been evaluated by infectious disease and gynecological services. Patient felt better and she has interval improvement, on the day of discharge her abdominal pain was completely resolved as 0/10, and her vaginal discharge was stopped. And she denied other symptoms. She is tolerating diet well, no nausea vomiting, no change in urine or bowel habits. No other pain. No dyspnea pro-calcitonin was increased indicating bacterial infection , CRP was high as well Her hospital course was completed by the trained maculopapular rash in the upper extremity, upper chest and back with mild rash possibly secondary to Unasyn which was discontinued, patient was informed that she could be ALLERGIC to penicillin/ampicillin causing her rash for future therapy and she verbalized understanding and acceptance Patient was cleared for discharge by ULTRASOUND TESTER and infectious disease service Problems and management plan were discussed with the patient and he verbalized understanding and acceptance Patient was found stable and can be discharged home however he needs follow-up as an outpatient. Patient was instructed to follow up with PCP within one week and patient agrees. Patient states that she has appointment with her PCP office this coming on 04/29, and her snailer Dr. Vela on 05/11 that she intends to follow up pt is dc on doxy for 5 days and flagyl for 7 days Gen: patient is a AAOx3, no distress CVS: S1-S2, RRR, no murmur Lungs: B/L CTA, no wheezing Abdomen: soft, no distention, no tenderness, positive bowel sounds Extremity: no leg edema or induration Time spent more than 35 minutes . Plan - Discharge Summary Discharge Rx Participant: Yes New Discharge Prescriptions: New diphenhydrAMINE [Benadryl] 25 mg PO TID PRN 1 Days #3 capsule PRN Reason: Itching metroNIDAZOLE [Flagyl] 500 mg PO BID 7 Days #13 tab Ibuprofen [Motrin] 400 mg PO Q6HR PRN 2 Days tab PRN Reason: PAIN/FEVER Acetaminophen Tab [Tylenol] 650 mg PO Q6HR PRN tab PRN Reason: Fever And/ Or Pain Doxycycline [Vibramycin] 100 mg PO BID 5 Days #10 cap Discontinued Doxycycline [Vibramycin] 100 mg PO BID 14 Days #28 capsule Sulfamethox-Tmp 800-160Mg [Bactrim DS 800-160 mg] 1 tab PO Q12HR 7 Days #14 tab Discharge Medication List Acetaminophen Tab [Tylenol] 650 mg PO Q6HR PRN tab 04/23/19 [Rx] Doxycycline [Vibramycin] 100 mg PO BID 5 Days #10 cap 04/23/19 [Rx] Ibuprofen [Motrin] 400 mg PO Q6HR PRN 2 Days tab 04/23/19 [Rx] diphenhydrAMINE [Benadryl] 25 mg PO TID PRN 1 Days #3 capsule 04/23/19 [Rx] metroNIDAZOLE [Flagyl] 500 mg PO BID 7 Days #13 tab 04/23/19 [Rx] Follow up Appointment(s)/Referral(s): Farzad Uribe III, MD [Primary Care Provider] - 1 Week (FOLLOW UP WITH DR URIBE'S OFFICE ON SATURDAY PREVIOUSLY SCHEDULED.) Sandra Vela DO [Doctor of Osteopathic Medicine] - 1 Week (April PREVIOUSLY SCHEDULED.) Patient Instructions/Handouts: Chlamydia (DC) Activity/Diet/Wound Care/Special Instructions: Do not drive while taking Benadryl. Take all antibiotics until finished, use Benadryl as needed. Call or return to ER for worsening rash, problems or concerns that brought you into hospital ie...abdominal pain, vaginal discharge, fever, chills. Discharge Disposition: HOME SELF-CARE
== END 2019-04-23 11:40 | disposition home or self-care (01) ==
LOC: 6PED 12:19 → INTOOBSV 12:19 → UNDODISIN 04-23 11:40
PROVIDERS: ADMIT Internal Medicine; ATTEND Internal Medicine
DX: N73.9 Female pelvic inflammatory disease, unspecified (principal); A74.9 Chlamydial infection, unspecified; N76.0 Acute vaginitis; F32.9 Major depressive disorder, single episode, unspecified; L27.0 Generalized skin eruption due to drugs and medicaments taken internally; T36.0X5A Adverse effect of penicillins, initial encounter; J45.909 Unspecified asthma, uncomplicated; Z87.891 Personal history of nicotine dependence; Z86.19 Personal history of other infectious and parasitic diseases; Z87.440 Personal history of urinary (tract) infections; Z98.51 Tubal ligation status; Z98.890 Other specified postprocedural states; Z88.1 Allergy status to other antibiotic agents; Y92.230 Patient room in hospital as the place of occurrence of the external cause
CPT/HCPCS: 96361; 96365; 96366; 96367; 96372 ×2; 96375 ×2; 96376; 80048 ×3; 80076; 83735; 85025 ×3; 85610; 85730; 86140; 81003; 84703; 87040; 84145; G0378 ×3; G0379; J1200; J1644 ×2; J2930; J0295 ×2

== ENCOUNTER → 2019-11-26 | Outpatient (CLI) | payer OTHER ==
--- NOTE | 2019-11-26 08:03 | USB ---
Reason for exam: clinical finding. History: Benign US biopsy breast VAD RT of the right breast, December 09, 2017. Indicated problem(s): lump or thickening in the left breast. Physical Findings: Nurse Summary: Patient complains of left breast lump 12 o'clock with upper outer quadrant pain (nurse mj). US Breast LT Left complete breast ultrasound includes all four quadrants, the retroareolar region and axilla. Finding demonstrates a 1.0 x 0.5 x 0.7cm cystic lesion at 12 o'clock and a 1.5 x 0.7 x 1.4cm cystic lesion at 2 o'clock. These results were verbally communicated with the patient and result sheet given to the patient on 11/26/19. ASSESSMENT: Benign, BI-RAD 2 RECOMMENDATION: Routine screening mammogram of both breasts at age 42. Manage patient on a clinical basis.
== END | disposition home or self-care (01) ==
LOC: RADUSWWP 06:56
PROVIDERS: ATTEND Family Medicine
DX: N63.21 Unspecified lump in the left breast, upper outer quadrant (principal)

== ENCOUNTER 2020-05-02 08:49 | Emergency (ER) | payer OTHER ==
[2020-05-02 08:52] VITALS: TEMP 97.9
--- NOTE | 2020-05-02 08:55 | ED ---
SOB HPI - General Chief Complaint: Shortness of Breath Stated Complaint: Chest pain/sob Time Seen by Provider: 05/02/20 08:54 Source: patient Mode of arrival: wheelchair Limitations: no limitations - History of Present Illness Initial Comments: 35-year-old female with history of asthma presents to emergency room with a chief complaint of shortness of breath. Patient reports has been ongoing for the past 3-4 days. She has been using her albuterol inhaler but no significant improvement in symptoms. Patient states she does not have any significant chest pain. She denies any fevers or chills. Does report an intermittent dry cough. She denies any URI like symptoms. Denies any headaches, one-sided weakness or paresthesias. Denies blurry vision, lightheadedness or dizziness. Denies exposure to known Covid patient. - Related Data Home Medications Medication Instructions Recorded Confirmed Albuterol Sulfate [Proair Hfa] 1 puff INHALATION RT-Q4H PRN 05/02/20 05/02/20 Sertraline [Zoloft] 50 mg PO DAILY 05/02/20 05/02/20 metroNIDAZOLE [Flagyl] 500 mg PO DIRECTED 05/02/20 05/02/20 Previous Rx's Medication Instructions Recorded predniSONE [Deltasone] 20 mg PO DAILY #5 tab 05/02/20 Allergies Allergy/AdvReac Type Severity Reaction Status Date / Time ampicillin [From Unasyn] Allergy Intermediate Rash/Hives Verified 05/02/20 09:54 sulbactam [From Unasyn] Allergy Intermediate Rash/Hives Verified 05/02/20 09:54 ciprofloxacin [From Cipro] Allergy Rash/Hives Verified 05/02/20 09:54 ciprofloxacin HCl Allergy Rash/Hives Verified 05/02/20 09:54 [From Cipro] Review of Systems ROS Statement: Those systems with pertinent positive or pertinent negative responses have been documented in the HPI. ROS Other: All systems not noted in ROS Statement are negative. Past Medical History Past Medical History: Asthma Additional Past Medical History / Comment(s): LYME DISEASE History of Any Multi-Drug Resistant Organisms: None Reported Past Surgical History: Tubal Ligation Additional Past Surgical History / Comment(s): lumpectomy right breast Past Anesthesia/Blood Transfusion Reactions: No Reported Reaction Past Psychological History: Depression Smoking Status: Never smoker Past Alcohol Use History: Occasional Past Drug Use History: None Reported - Past Family History Mother Family Medical History: No Reported History General Exam Limitations: no limitations General appearance: alert, in no apparent distress Head exam: Present: atraumatic, normocephalic, normal inspection Eye exam: Present: normal appearance, PERRL, EOMI Pupils: Present: normal accommodation ENT exam: Present: normal exam, normal oropharynx, mucous membranes moist, TM's normal bilaterally, normal external ear exam Neck exam: Present: normal inspection, full ROM. Absent: tenderness Respiratory exam: Present: normal lung sounds bilaterally. Absent: respiratory distress, wheezes, rales, rhonchi, stridor, chest wall tenderness, accessory muscle use Cardiovascular Exam: Present: regular rate, normal rhythm, normal heart sounds Extremities exam: Present: normal inspection, full ROM, normal capillary refill. Absent: tenderness Back exam: Present: normal inspection, full ROM. Absent: tenderness, CVA tenderness (R), CVA tenderness (L) Neurological exam: Present: alert, oriented X3, CN II-XII intact, normal gait Psychiatric exam: Present: normal affect, normal mood Skin exam: Present: warm, dry, intact, normal color Course Vital Signs 05/02/20 05/02/20 05/02/20 08:50 10:35 11:57 Temperature 97.9 F Pulse Rate 88 69 78 Respiratory 18 18 16 Rate Blood Pressure 110/69 108/74 O2 Sat by Pulse 100 98 99 Oximetry Medical Decision Making - Medical Decision Making 35-year-old female with history of asthma presents to emergency department with a chief complaint of shortness of breath. On physical examination, patient does not appear to be any respiratory distress. She has stable vital signs. Lungs are clear to auscultation. Chest x-ray is unremarkable. CBC CMP and coags unremarkable. Dimer and troponins negative. EKG showed an ectopic atrial paced rhythm. Patient was advised to follow-up with a neon tube pumper. Strict return parameters were thoroughly discussed the patient is upsetting ago. She'll be discharged with prednisone to see if her symptoms resolve. Case discussed with - Lab Data Result diagrams: 05/02/20 09:50 05/02/20 09:50 Lab Results 05/02/20 05/02/20 05/02/20 Range/Units 09:50 09:50 09:50 WBC 5.7 (3.8-10.6) k/uL RBC 4.29 (3.80-5.40) m/uL Hgb 13.4 (11.4-16.0) gm/dL Hct 39.6 (34.0-46.0) % MCV 92.3 (80.0-100.0) fL MCH 31.2 (25.0-35.0) pg MCHC 33.8 (31.0-37.0) g/dL RDW 12.4 (11.5-15.5) % Plt Count 135 L (150-450) k/uL MPV 8.8 Neutrophils % 67 % Lymphocytes % 24 % Monocytes % 6 % Eosinophils % 1 % Basophils % 0 % Neutrophils # 3.8 (1.3-7.7) k/uL Lymphocytes # 1.4 (1.0-4.8) k/uL Monocytes # 0.4 (0-1.0) k/uL Eosinophils # 0.0 (0-0.7) k/uL Basophils # 0.0 (0-0.2) k/uL PT 10.2 (9.0-12.0) sec INR 1.0 (<1.2) APTT 21.4 L (22.0-30.0) sec D-Dimer 0.19 (<0.60) mg/L FEU Sodium 136 L (137-145) mmol/L Potassium 3.9 (3.5-5.1) mmol/L Chloride 106 (98-107) mmol/L Carbon Dioxide 23 (22-30) mmol/L Anion Gap 7 mmol/L BUN 11 (7-17) mg/dL Creatinine 0.64 (0.52-1.04) mg/dL Est GFR (CKD-EPI)AfAm >90 (>60 ml/min/1.73 sqM) Est GFR (CKD-EPI)NonAf >90 (>60 ml/min/1.73 sqM) Glucose 101 H (74-99) mg/dL Calcium 9.4 (8.4-10.2) mg/dL Magnesium 2.2 (1.6-2.3) mg/dL Total Bilirubin 0.6 (0.2-1.3) mg/dL AST 16 (14-36) U/L ALT 9 (4-34) U/L Alkaline Phosphatase 40 (38-126) U/L Troponin I (0.000-0.034) ng/mL Total Protein 6.7 (6.3-8.2) g/dL Albumin 4.2 (3.5-5.0) g/dL 05/02/20 Range/Units 09:50 WBC (3.8-10.6) k/uL RBC (3.80-5.40) m/uL Hgb (11.4-16.0) gm/dL Hct (34.0-46.0) % MCV (80.0-100.0) fL MCH (25.0-35.0) pg MCHC (31.0-37.0) g/dL RDW (11.5-15.5) % Plt Count (150-450) k/uL MPV Neutrophils % % Lymphocytes % % Monocytes % % Eosinophils % % Basophils % % Neutrophils # (1.3-7.7) k/uL Lymphocytes # (1.0-4.8) k/uL Monocytes # (0-1.0) k/uL Eosinophils # (0-0.7) k/uL Basophils # (0-0.2) k/uL PT (9.0-12.0) sec INR (<1.2) APTT (22.0-30.0) sec D-Dimer (<0.60) mg/L FEU Sodium (137-145) mmol/L Potassium (3.5-5.1) mmol/L Chloride (98-107) mmol/L Carbon Dioxide (22-30) mmol/L Anion Gap mmol/L BUN (7-17) mg/dL Creatinine (0.52-1.04) mg/dL Est GFR (CKD-EPI)AfAm (>60 ml/min/1.73 sqM) Est GFR (CKD-EPI)NonAf (>60 ml/min/1.73 sqM) Glucose (74-99) mg/dL Calcium (8.4-10.2) mg/dL Magnesium (1.6-2.3) mg/dL Total Bilirubin (0.2-1.3) mg/dL AST (14-36) U/L ALT (4-34) U/L Alkaline Phosphatase (38-126) U/L Troponin I <0.012 (0.000-0.034) ng/mL Total Protein (6.3-8.2) g/dL Albumin (3.5-5.0) g/dL - EKG Data EKG Comments: Inverted P-wave likely from ectopic atrial rhythm Ventricular rate 84, IL 146, QRS 90, QTC 441 Disposition Clinical Impression: Shortness of breath Disposition: HOME SELF-CARE Condition: Stable Instructions (If sedation given, give patient instructions): Abdominal Pain in Children (ED) Additional Instructions: Follow-up with a primary care physician. Take prescribed medication as directed . Please return to the Emergency Department if symptoms worsen or any other concerns. Follow up with cardiology. Prescriptions: predniSONE [Deltasone] 20 mg PO DAILY #5 tab Is patient prescribed a controlled substance at d/c from ED?: No Referrals: Farzad Uribe III, MD [Primary Care Provider] - 1-2 days Ronen Donaldson MD [STAFF PHYSICIAN] - 1-2 days Time of Disposition: 09:38
--- NOTE | 2020-05-02 09:42 | XR ---
EXAMINATION TYPE: XR chest 2V DATE OF EXAM: 05/02/2020 COMPARISON: Chest x-ray April 19, 2018. HISTORY: Asthma with shortness of breath. TECHNIQUE: Frontal and lateral views of the chest are obtained. FINDINGS: There is no new suspicious focal air space opacity, pleural effusion, or pneumothorax seen . The cardiac silhouette size is stable and within normal limits. Slight underlying scoliotic curvat ure centered upper thoracic spine redemonstrated. Overlying EKG leads. IMPRESSION: No acute cardiopulmonary process. No significant change from prior.
[2020-05-02 10:01] LABS: Basophils % (A) 0 %; Eosinophils % (A) 1 %; HCT 39.6 % (34.0-46.0); HGB 13.4 gm/dL (11.4-16.0); Lymphocytes # (A) 1.4 k/uL (1.0-4.8); Lymphocytes % (A) 24 %; MCH 31.2 pg (25.0-35.0); MCHC 33.8 g/dL (31.0-37.0); MCV 92.3 fL (80.0-100.0); Mean Platelet Volume 8.8; Monocytes # (A) 0.4 k/uL (0-1.0); Monocytes % (A) 6 %; Neutrophils # (A) 3.8 k/uL (1.3-7.7); Neutrophils % (A) 67 %; Platelet Count 135 k/uL (150-450); RBC 4.29 m/uL (3.80-5.40); RDW 12.4 % (11.5-15.5); WBC 5.7 k/uL (3.8-10.6)
[2020-05-02 10:08] LABS: ALT 9 U/L (4-34); AST 16 U/L (14-36); African American GFR (CKD) >90 (>60 ml/min/1.73 sqM); Albumin 4.2 g/dL (3.5-5.0); Alkaline Phosphatase 40 U/L (38-126); Anion Gap 7 mmol/L; Blood Urea Nitrogen 11 mg/dL (7-17); Calcium 9.4 mg/dL (8.4-10.2); Carbon Dioxide 23 mmol/L (22-30); Chloride 106 mmol/L (98-107); Glucose 101 mg/dL (74-99); Magnesium 2.2 mg/dL (1.6-2.3); Non-African American GFR(CKD) >90 (>60 ml/min/1.73 sqM); Potassium 3.9 mmol/L (3.5-5.1); Sodium 136 mmol/L (137-145); Total Bilirubin 0.6 mg/dL (0.2-1.3); Total Protein 6.7 g/dL (6.3-8.2)
[2020-05-02 10:23] LABS: Prothrombin Time 10.2 sec (9.0-12.0)
[2020-05-02 10:27] LABS: Partial Thromboplastin Time 21.4 sec (22.0-30.0)
[2020-05-02 11:58] VITALS: BP 108/74; PULSE 78; RESP 16
== END 2020-05-02 11:58 | disposition home or self-care (01) ==
LOC: EC 08:49
DX: R06.02 Shortness of breath (principal); J45.909 Unspecified asthma, uncomplicated; A69.20 Lyme disease, unspecified; Z79.2 Long term (current) use of antibiotics; Z79.899 Other long term (current) drug therapy; Z88.0 Allergy status to penicillin; Z88.1 Allergy status to other antibiotic agents; Z98.51 Tubal ligation status
CPT/HCPCS: 36415; 71046; 80053; 83735; 84484; 85025; 85379; 85610; 85730; 93005; 99285

== ENCOUNTER → 2020-06-22 | Outpatient (CLI) | payer OTHER | END | disposition home or self-care (01) | LOC: LABWHC1 15:24 | PROVIDERS: ATTEND Family Medicine | DX: Z20.822 Contact with and (suspected) exposure to COVID-19 (principal); F41.1 Generalized anxiety disorder | CPT/HCPCS: U0003; C9803 ==

== ENCOUNTER 2020-07-31 13:34 | Emergency (ER) | payer OTHER ==
[2020-07-31 13:39] VITALS: PULSE 85; RESP 20; TEMP 98.3
--- NOTE | 2020-07-31 14:54 | ED ---
Chest Pain HPI - General Chief Complaint: Chest Pain Stated Complaint: chest tightness, dizziness Time Seen by Provider: 07/31/20 14:43 Source: patient Mode of arrival: ambulatory Limitations: no limitations - History of Present Illness Initial Comments: 35-year-old female presents to the emergency department with chief complaint of chest pain. States the symptoms began yesterday and she feels tightness across her chest but denies any associated shortness of breath. States yesterday she also noticed a tingling sensation going down her right arm lasted for approximately 10 minutes and then resolved. She also reports feeling lightheaded earlier today but not at this time. Denies any associated visual changes, headaches, dizziness, nausea, vomiting, diaphoretic episodes. States she does feel slight palpitations but otherwise insignificant. States she recently has seen Dr. Donaldson advisor to come to be reevaluated if she continues to have or experiences any symptoms in her chest. - Related Data Home Medications Medication Instructions Recorded Confirmed No Known Home Medications 07/31/20 07/31/20 Allergies Allergy/AdvReac Type Severity Reaction Status Date / Time ampicillin [From Unasyn] Allergy Intermediate Rash/Hives Verified 07/31/20 15:03 sulbactam [From Unasyn] Allergy Intermediate Rash/Hives Verified 07/31/20 15:03 ciprofloxacin [From Cipro] Allergy Rash/Hives Verified 07/31/20 15:03 ciprofloxacin HCl Allergy Rash/Hives Verified 07/31/20 15:03 [From Cipro] Review of Systems ROS Statement: Those systems with pertinent positive or pertinent negative responses have been documented in the HPI. ROS Other: All systems not noted in ROS Statement are negative. Past Medical History Past Medical History: Asthma Additional Past Medical History / Comment(s): LYME DISEASE History of Any Multi-Drug Resistant Organisms: None Reported Past Surgical History: Tubal Ligation Additional Past Surgical History / Comment(s): lumpectomy right breast Past Anesthesia/Blood Transfusion Reactions: No Reported Reaction Past Psychological History: Anxiety, Depression Smoking Status: Never smoker Past Alcohol Use History: Occasional Past Drug Use History: None Reported - Past Family History Mother Family Medical History: No Reported History General Exam Limitations: no limitations General appearance: alert, in no apparent distress Head exam: Present: atraumatic, normocephalic, normal inspection Eye exam: Present: normal appearance, PERRL, EOMI Pupils: Present: normal accommodation ENT exam: Present: normal exam, normal oropharynx, mucous membranes moist, TM's normal bilaterally, normal external ear exam Neck exam: Present: normal inspection, full ROM. Absent: tenderness Respiratory exam: Present: normal lung sounds bilaterally. Absent: respiratory distress, wheezes, rales, rhonchi, stridor, chest wall tenderness, accessory muscle use Cardiovascular Exam: Present: regular rate, normal rhythm, normal heart sounds. Absent: systolic murmur GI/Abdominal exam: Present: soft. Absent: distended, tenderness, guarding, rebound Extremities exam: Present: normal inspection, full ROM, normal capillary refill. Absent: tenderness, pedal edema, joint swelling Back exam: Present: normal inspection, full ROM. Absent: tenderness, CVA tenderness (R), CVA tenderness (L), muscle spasm, paraspinal tenderness, vertebral tenderness Neurological exam: Present: alert, oriented X3 Psychiatric exam: Present: normal affect, normal mood Skin exam: Present: warm, dry, intact, normal color Course Vital Signs 07/31/20 07/31/20 13:37 15:24 Temperature 98.3 F Pulse Rate 85 85 Respiratory 20 20 Rate Blood Pressure 116/76 114/71 O2 Sat by Pulse 99 98 Oximetry Chest Pain MDM - MDM 35-year-old female with history of asthma presents to the emergency department with chief complaint of chest pain. Physical examination is unremarkable. Patient is neurovascularly intact. No focal neural deficits. Chest x-ray is unremarkable. Laboratory work shows no acute finding. TSH within normal limits. Initial troponins are negative. Coags within normal limits. Vital signs within normal limits. Patient is resting comfortably in bed. EKG showed a sinus rhythm with likely an ectopic P-wave that was also present in her previous EKGs. Patient was advised to follow up with her corporate attorney. Return parameters were thoroughly discussed the patient is resting agreeable. Case discussed with Dr. [place]. Disposition Clinical Impression: Atypical chest pain Disposition: HOME SELF-CARE Condition: Stable Instructions (If sedation given, give patient instructions): Chest Pain (ED) Additional Instructions: Follow-up with cardiology. Return to emergency department if symptoms worsen. Is patient prescribed a controlled substance at d/c from ED?: No Referrals: Farzad Uribe III, MD [Primary Care Provider] - 1-2 days Time of Disposition: 16:17
[2020-07-31 15:24] VITALS: BP 114/71
[2020-07-31 15:33] LABS: Basophils % (A) 1 %; Eosinophils # (A) 0.1 k/uL (0-0.7); Eosinophils % (A) 1 %; HCT 39.3 % (34.0-46.0); HGB 13.3 gm/dL (11.4-16.0); Lymphocytes # (A) 1.3 k/uL (1.0-4.8); Lymphocytes % (A) 20 %; MCH 32.9 pg (25.0-35.0); MCHC 33.9 g/dL (31.0-37.0); Mean Platelet Volume 8.3; Monocytes # (A) 0.4 k/uL (0-1.0); Monocytes % (A) 6 %; Neutrophils # (A) 4.8 k/uL (1.3-7.7); Neutrophils % (A) 71 %; Platelet Count 204 k/uL (150-450); RBC 4.05 m/uL (3.80-5.40); RDW 13.3 % (11.5-15.5); WBC 6.8 k/uL (3.8-10.6)
[2020-07-31 15:43] LABS: ALT 21 U/L (4-34); AST 26 U/L (14-36); African American GFR (CKD) >90 (>60 ml/min/1.73 sqM); Albumin 4.1 g/dL (3.5-5.0); Alkaline Phosphatase 58 U/L (38-126); Anion Gap 5 mmol/L; Blood Urea Nitrogen 14 mg/dL (7-17); Calcium 9.8 mg/dL (8.4-10.2); Carbon Dioxide 28 mmol/L (22-30); Chloride 106 mmol/L (98-107); Glucose 91 mg/dL (74-99); Magnesium 2.2 mg/dL (1.6-2.3); Non-African American GFR(CKD) >90 (>60 ml/min/1.73 sqM); Potassium 4.2 mmol/L (3.5-5.1); Sodium 139 mmol/L (137-145); Total Bilirubin 0.5 mg/dL (0.2-1.3); Total Protein 6.6 g/dL (6.3-8.2)
--- NOTE | 2020-07-31 15:47 | XR ---
EXAMINATION TYPE: XR chest 2V DATE OF EXAM: 07/31/2020 COMPARISON: 05/02/2020 HISTORY: Chest pain TECHNIQUE: FINDINGS: Heart and mediastinum are normal. Lungs are clear. Diaphragm is normal. Bony thorax is inta ct. IMPRESSION: Normal chest. No change.
[2020-07-31 15:57] LABS: INR 0.9 (<1.2); Prothrombin Time 9.8 sec (9.0-12.0)
== END 2020-07-31 16:57 | disposition home or self-care (01) ==
LOC: EC 13:34
DX: R07.89 Other chest pain (principal); J45.909 Unspecified asthma, uncomplicated; Z98.51 Tubal ligation status; F32.9 Major depressive disorder, single episode, unspecified
CPT/HCPCS: 36415; 71046; 80053; 83735; 84443; 84484; 85025; 85610; 85730; 93005; 99285

== ENCOUNTER 2020-08-15 13:28 | Emergency (ER) | payer OTHER ==
[2020-08-15 13:46] VITALS: BP 109/78; PULSE 91; RESP 18; TEMP 98.1
[2020-08-15 15:28] LABS: Appearance,Urine Cloudy (Clear); Bacteria,Urine Few /hpf; Bilirubin,Urine Negative (Negative); Blood,Urine Large (Negative); Color,Urine Light Yellow; Glucose,Urine (UA) Negative (Negative); Ketones,Urine Negative (Negative); Leukocyte Esterase,Urine Large (Negative); Mucus,Urine Rare /hpf; Nitrite,Urine Negative (Negative); PH, Urine 6.5 (5.0-8.0); Protein,Urine 1+ (Negative); RBC,Urine 7 /hpf (0-5); Specific Gravity,Urine 1.006 (1.001-1.035); Squamous Epithelial Cell,Urine 1 /hpf (0-4); Urobilinogen,Urine <2.0 mg/dL (<2.0); WBC,Urine 46 /hpf (0-5)
[2020-08-15] MEDS ORDERED: KETOROLAC 15 MG/ML 1 ML VIAL IVP STA (15:43)
[2020-08-15] MEDS ORDERED: SODIUM CHLORIDE 0.9% 1,000 ML IV STA (15:43)
--- NOTE | 2020-08-15 15:51 | ED ---
General Adult HPI - General Chief complaint: Back Pain/Injury Stated complaint: Back pain Source: patient, RN notes reviewed Mode of arrival: ambulatory Limitations: no limitations - History of Present Illness Initial comments: Tearful 35-year-old female patient presents to the emergency room with complaints of left sided back pain that radiates to the left groin. Patient states that the pain comes and goes in waves. She denies any fevers nausea or vomiting. Medical history is asthma, patient is nonsmoker. Patient is afebrile at 98.1. She has no family history of kidney stones, denies , vaginal bleeding or vaginal discharge. -: days(s) (1) Location: back, abdomen, left Radiation: non-radiation Quality: sharp, constant Consistency: colicky (Comes in waves) Improves with: none Worsens with: none Associated Symptoms: denies other symptoms - Related Data Previous Rx's Medication Instructions Recorded Ibuprofen [Motrin] 600 mg PO Q8HR PRN #30 tab 08/15/20 Tamsulosin [Flomax] 0.4 mg PO DAILY #7 cap 08/15/20 Allergies Allergy/AdvReac Type Severity Reaction Status Date / Time ampicillin [From Unasyn] Allergy Intermediate Rash/Hives Verified 08/15/20 13:46 sulbactam [From Unasyn] Allergy Intermediate Rash/Hives Verified 08/15/20 13:46 ciprofloxacin [From Cipro] Allergy Rash/Hives Verified 08/15/20 13:46 ciprofloxacin HCl Allergy Rash/Hives Verified 08/15/20 13:46 [From Cipro] Review of Systems ROS Statement: Those systems with pertinent positive or pertinent negative responses have been documented in the HPI. ROS Other: All systems not noted in ROS Statement are negative. Past Medical History Past Medical History: Asthma Additional Past Medical History / Comment(s): LYME DISEASE History of Any Multi-Drug Resistant Organisms: None Reported Past Surgical History: Tubal Ligation Additional Past Surgical History / Comment(s): lumpectomy right breast Past Anesthesia/Blood Transfusion Reactions: No Reported Reaction Past Psychological History: Anxiety, Depression Smoking Status: Never smoker Past Alcohol Use History: Occasional Past Drug Use History: None Reported - Past Family History Mother Family Medical History: No Reported History General Exam Limitations: no limitations General appearance: alert Head exam: Present: atraumatic, normocephalic, normal inspection Eye exam: Present: normal appearance, PERRL, EOMI. Absent: scleral icterus, conjunctival injection, periorbital swelling Pupils: Present: normal accommodation ENT exam: Present: normal exam, normal oropharynx, mucous membranes moist Neck exam: Present: normal inspection, full ROM. Absent: tenderness, meningismus, lymphadenopathy Respiratory exam: Present: normal lung sounds bilaterally. Absent: respiratory distress, wheezes, rales, rhonchi, stridor, chest wall tenderness, accessory muscle use, decreased breath sounds Cardiovascular Exam: Present: regular rate, normal rhythm, normal heart sounds. Absent: systolic murmur, diastolic murmur, rubs, gallop, clicks GI/Abdominal exam: Present: soft, tenderness (Left lower quadrant/groin), normal bowel sounds. Absent: distended, guarding, rebound, rigid Rectal exam: Present: deferred Extremities exam: Present: normal inspection, full ROM, normal capillary refill. Absent: tenderness, pedal edema, joint swelling, calf tenderness Back exam: Present: normal inspection, full ROM, CVA tenderness (L). Absent: CVA tenderness (R), muscle spasm, paraspinal tenderness, vertebral tenderness, rash noted Neurological exam: Present: alert, oriented X3, CN II-XII intact Psychiatric exam: Present: normal affect, normal mood Skin exam: Present: warm, dry, intact, normal color. Absent: rash, cyanosis, diaphoretic, erythema, petechiae, pallor, mottled Course Vital Signs 08/15/20 13:44 Temperature 98.1 F Pulse Rate 91 Respiratory 18 Rate Blood Pressure 109/78 O2 Sat by Pulse 98 Oximetry Medical Decision Making - Medical Decision Making WBC count was 18, UA shows positive leukocytes, large blood, white count 46 which is likely reactive to the kidney stone passed. CT the abdomen and pelvis shows that there is a left-sided hydronephrosis and hydroureter IDENTIFIED there is a 3 mm calculus in the lower pole of the right kidney but there is no pelvic mass and no obstructing calculus seen. Patient did get relief with Toradol and IV fluids. Is agreeable to being discharged home and following up with the primary care doctor. She states that she has an appointment with Dr. Uribe tomorrow for this same problem but couldn't stand the pain is why she came to the ER today. Case discussed with Dr. Keenan was agreeable to this plan - Lab Data Result diagrams: 08/15/20 15:58 08/15/20 15:58 Lab Results 08/15/20 08/15/20 08/15/20 Range/Units 14:59 14:59 15:58 WBC 18.6 H (3.8-10.6) k/uL RBC 4.09 (3.80-5.40) m/uL Hgb 13.6 (11.4-16.0) gm/dL Hct 39.8 (34.0-46.0) % MCV 97.2 (80.0-100.0) fL MCH 33.2 (25.0-35.0) pg MCHC 34.1 (31.0-37.0) g/dL RDW 12.7 (11.5-15.5) % Plt Count 168 (150-450) k/uL MPV 8.3 Neutrophils % 87 % Lymphocytes % 7 % Monocytes % 5 % Eosinophils % 0 % Basophils % 0 % Neutrophils # 16.3 H (1.3-7.7) k/uL Lymphocytes # 1.3 (1.0-4.8) k/uL Monocytes # 0.8 (0-1.0) k/uL Eosinophils # 0.0 (0-0.7) k/uL Basophils # 0.0 (0-0.2) k/uL Sodium (137-145) mmol/L Potassium (3.5-5.1) mmol/L Chloride (98-107) mmol/L Carbon Dioxide (22-30) mmol/L Anion Gap mmol/L BUN (7-17) mg/dL Creatinine (0.52-1.04) mg/dL Est GFR (CKD-EPI)AfAm (>60 ml/min/1.73 sqM) Est GFR (CKD-EPI)NonAf (>60 ml/min/1.73 sqM) Glucose (74-99) mg/dL Calcium (8.4-10.2) mg/dL Total Bilirubin (0.2-1.3) mg/dL AST (14-36) U/L ALT (4-34) U/L Alkaline Phosphatase (38-126) U/L Total Protein (6.3-8.2) g/dL Albumin (3.5-5.0) g/dL Lipase (23-300) U/L Urine Color Light Yellow Urine Appearance Cloudy H (Clear) Urine pH 6.5 (5.0-8.0) Ur Specific [place] 1.006 (1.001-1.035) Urine Protein 1+ H (Negative) Urine Glucose (UA) Negative (Negative) Urine Ketones Negative (Negative) Urine Blood Large H (Negative) Urine Nitrite Negative (Negative) Urine Bilirubin Negative (Negative) Urine Urobilinogen <2.0 (<2.0) mg/dL Ur Leukocyte Esterase Large H (Negative) Urine RBC 7 H (0-5) /hpf Urine WBC 46 H (0-5) /hpf Ur Squamous Epith Cells 1 (0-4) /hpf Urine Bacteria Few H (None) /hpf Urine Mucus Rare H (None) /hpf Urine HCG, Qual Not Detected (Not Detectd) 08/15/20 Range/Units 15:58 WBC (3.8-10.6) k/uL RBC (3.80-5.40) m/uL Hgb (11.4-16.0) gm/dL Hct (34.0-46.0) % MCV (80.0-100.0) fL MCH (25.0-35.0) pg MCHC (31.0-37.0) g/dL RDW (11.5-15.5) % Plt Count (150-450) k/uL MPV Neutrophils % % Lymphocytes % % Monocytes % % Eosinophils % % Basophils % % Neutrophils # (1.3-7.7) k/uL Lymphocytes # (1.0-4.8) k/uL Monocytes # (0-1.0) k/uL Eosinophils # (0-0.7) k/uL Basophils # (0-0.2) k/uL Sodium 137 (137-145) mmol/L Potassium 3.8 (3.5-5.1) mmol/L Chloride 102 (98-107) mmol/L Carbon Dioxide 25 (22-30) mmol/L Anion Gap 10 mmol/L BUN 6 L (7-17) mg/dL Creatinine 0.52 (0.52-1.04) mg/dL Est GFR (CKD-EPI)AfAm >90 (>60 ml/min/1.73 sqM) Est GFR (CKD-EPI)NonAf >90 (>60 ml/min/1.73 sqM) Glucose 94 (74-99) mg/dL Calcium 9.4 (8.4-10.2) mg/dL Total Bilirubin 0.6 (0.2-1.3) mg/dL AST 23 (14-36) U/L ALT 15 (4-34) U/L Alkaline Phosphatase 63 (38-126) U/L Total Protein 7.3 (6.3-8.2) g/dL Albumin 4.6 (3.5-5.0) g/dL Lipase 53 (23-300) U/L Urine Color Urine Appearance (Clear) Urine pH (5.0-8.0) Ur Specific [place] (1.001-1.035) Urine Protein (Negative) Urine Glucose (UA) (Negative) Urine Ketones (Negative) Urine Blood (Negative) Urine Nitrite (Negative) Urine Bilirubin (Negative) Urine Urobilinogen (<2.0) mg/dL Ur Leukocyte Esterase (Negative) Urine RBC (0-5) /hpf Urine WBC (0-5) /hpf Ur Squamous Epith Cells (0-4) /hpf Urine Bacteria (None) /hpf Urine Mucus (None) /hpf Urine HCG, Qual (Not Detectd) Disposition Clinical Impression: Kidney stones Disposition: HOME SELF-CARE Condition: Good Instructions (If sedation given, give patient instructions): Kidney Stones (ED) Additional Instructions: Increase your fluid intake take medication as prescribed and keep your appointment with Dr. Uribe tomorrow. Return to the emergency room with increasing pain, inability to urinate, or fevers. Prescriptions: Tamsulosin [Flomax] 0.4 mg PO DAILY #7 cap Ibuprofen [Motrin] 600 mg PO Q8HR PRN #30 tab PRN Reason: Pain Is patient prescribed a controlled substance at d/c from ED?: No Referrals: Farzad Uribe III, MD [Primary Care Provider] - 1-2 days Time of Disposition: 18:07
[2020-08-15 16:10] LABS: Basophils % (A) 0 %; Eosinophils % (A) 0 %; HCT 39.8 % (34.0-46.0); HGB 13.6 gm/dL (11.4-16.0); Lymphocytes # (A) 1.3 k/uL (1.0-4.8); Lymphocytes % (A) 7 %; MCH 33.2 pg (25.0-35.0); MCHC 34.1 g/dL (31.0-37.0); MCV 97.2 fL (80.0-100.0); Mean Platelet Volume 8.3; Monocytes # (A) 0.8 k/uL (0-1.0); Monocytes % (A) 5 %; Neutrophils # (A) 16.3 k/uL (1.3-7.7); Neutrophils % (A) 87 %; Platelet Count 168 k/uL (150-450); RBC 4.09 m/uL (3.80-5.40); RDW 12.7 % (11.5-15.5); WBC 18.6 k/uL (3.8-10.6)
[2020-08-15 16:22] LABS: ALT 15 U/L (4-34); AST 23 U/L (14-36); African American GFR (CKD) >90 (>60 ml/min/1.73 sqM); Albumin 4.6 g/dL (3.5-5.0); Alkaline Phosphatase 63 U/L (38-126); Anion Gap 10 mmol/L; Blood Urea Nitrogen 6 mg/dL (7-17); Calcium 9.4 mg/dL (8.4-10.2); Carbon Dioxide 25 mmol/L (22-30); Chloride 102 mmol/L (98-107); Glucose 94 mg/dL (74-99); Lipase 53 U/L (23-300); Non-African American GFR(CKD) >90 (>60 ml/min/1.73 sqM); Potassium 3.8 mmol/L (3.5-5.1); Sodium 137 mmol/L (137-145); Total Bilirubin 0.6 mg/dL (0.2-1.3); Total Protein 7.3 g/dL (6.3-8.2)
--- NOTE | 2020-08-15 17:42 | CT ---
EXAMINATION TYPE: CT abdomen pelvis wo con DATE OF EXAM: 08/15/2020 COMPARISON: 04/15/2019 HISTORY: Left flank pain. CT DLP: 358.1 mGycm Automated exposure control for dose reduction was used. Images obtained from the diaphragm to the floor the pelvis with no contrast. Lung bases are clear. There is no pleural effusion. Heart size is normal. There is no pericardial eff usion. Liver spleen stomach pancreas appear intact. Gallbladder appears intact. The bile ducts are not dilat ed. There is no adrenal mass. There is left-sided hydronephrosis and hydroureter. No calculus identified. There is 3 mm calculus lower pole right kidney. There is no retroperitoneal adenopathy. There is bro ad-based umbilical hernia that contains fat. The appendix is posterior and appears normal. There is n o mesenteric edema. There is no ascites or free air. There is no bowel obstruction. The bladder diste nds smoothly. The uterus is anteverted. I see no pelvic mass. The lumbar vertebra have normal spacing and alignment. Posterior elements are intact. There is no com pression fracture. Bony pelvis is intact. Hip joints are intact. IMPRESSION: Left-sided hydronephrosis and hydroureter. No obstructing calculus seen. This could relate to recentl y passed stone or nonopaque stone. Reflux disease also possible in this patient with right side pain. Small nonobstructing calculus lower pole right kidney. Normal appendix. No sign of inflammatory bowel disease. Left-sided hydronephrosis is new compared to old exam.
== END 2020-08-15 18:10 | disposition home or self-care (01) ==
LOC: EC 13:28
DX: N13.2 Hydronephrosis with renal and ureteral calculous obstruction (principal); J45.909 Unspecified asthma, uncomplicated; F32.9 Major depressive disorder, single episode, unspecified; F41.9 Anxiety disorder, unspecified; Z88.0 Allergy status to penicillin; Z88.1 Allergy status to other antibiotic agents
CPT/HCPCS: 36415; 80053; 83690; 85025; 81001; 81025; 87086; 74176; 99284; 96374; 96361 ×2; J1885

== ENCOUNTER 2021-01-25 08:58 | Emergency (ER) | payer OTHER ==
[2021-01-25 09:02] VITALS: RESP 18
--- NOTE | 2021-01-25 10:05 | ED ---
ENT HPI - General Chief complaint: ENT Stated complaint: sore throat & congestion Time Seen by Provider: 01/25/21 09:05 Source: patient, RN notes reviewed Mode of arrival: ambulatory Limitations: no limitations - History of Present Illness Initial comments: This a 35-year-old female presents emergency Department with chief complaint of cough congestion sore throat. No reported fever. She states her throat does feel scratchy from the drainage. She states her son has similar symptoms worsen started last few days patient does admit to prior COVID-19 infection in May. Patient denies any nausea vomiting diarrhea constipation. Patient states that she has a mildly productive cough no shortness of breath. - Related Data Home Medications Medication Instructions Recorded Confirmed Albuterol Inhaler [Ventolin Hfa 2 puff INHALATION RT-QID PRN 01/25/21 01/25/21 Inhaler] Omeprazole [PriLOSEC] 40 mg PO DAILY PRN 01/25/21 01/25/21 Allergies Allergy/AdvReac Type Severity Reaction Status Date / Time ampicillin [From Unasyn] Allergy Intermediate Rash/Hives Verified 01/25/21 09:46 sulbactam [From Unasyn] Allergy Intermediate Rash/Hives Verified 01/25/21 09:46 ciprofloxacin [From Cipro] Allergy Rash/Hives Verified 01/25/21 09:46 ciprofloxacin HCl Allergy Rash/Hives Verified 01/25/21 09:46 [From Cipro] Review of Systems ROS Statement: Those systems with pertinent positive or pertinent negative responses have been documented in the HPI. ROS Other: All systems not noted in ROS Statement are negative. Past Medical History Past Medical History: Asthma Additional Past Medical History / Comment(s): LYME DISEASE History of Any Multi-Drug Resistant Organisms: None Reported Past Surgical History: Tubal Ligation Additional Past Surgical History / Comment(s): lumpectomy right breast Past Anesthesia/Blood Transfusion Reactions: No Reported Reaction Past Psychological History: Anxiety, Depression Smoking Status: Never smoker Past Alcohol Use History: Occasional Past Drug Use History: None Reported - Past Family History Mother Family Medical History: No Reported History General Exam Limitations: no limitations General appearance: alert, in no apparent distress Head exam: Present: atraumatic, normocephalic, normal inspection Eye exam: Present: normal appearance, PERRL, EOMI. Absent: scleral icterus, conjunctival injection, periorbital swelling ENT exam: Present: normal exam, normal oropharynx, mucous membranes moist, TM's normal bilaterally Neck exam: Present: normal inspection, full ROM. Absent: tenderness, meningismus, lymphadenopathy Respiratory exam: Present: normal lung sounds bilaterally. Absent: respiratory distress, wheezes, rales, rhonchi, stridor Cardiovascular Exam: Present: regular rate, normal rhythm, normal heart sounds. Absent: systolic murmur, diastolic murmur, rubs, gallop, clicks Course Vital Signs 01/25/21 01/25/21 08:59 09:17 Temperature 99.1 F Pulse Rate 95 Respiratory 18 18 Rate Blood Pressure 125/78 O2 Sat by Pulse 98 Oximetry Medical Decision Making - Medical Decision Making Patient has a viral URI. Patient's: 19 T negative patient discharged stable condition. - Lab Data Lab Results 01/25/21 Range/Units 09:06 Coronavirus (PCR) Not Detected (Not Detectd) Disposition Clinical Impression: Viral upper respiratory infection Disposition: HOME SELF-CARE Condition: Stable Instructions (If sedation given, give patient instructions): Upper Respiratory Infection (ED) Additional Instructions: Please return to the Emergency Department if symptoms worsen or any other concerns. Is patient prescribed a controlled substance at d/c from ED?: No Referrals: Farzad Uribe III, MD [Primary Care Provider] - 1-2 days Time of Disposition: 10:05
[2021-01-25 10:18] VITALS: BP 103/66; PULSE 76; TEMP 98.4
== END 2021-01-25 10:17 | disposition home or self-care (01) ==
LOC: EC 08:58
DX: J06.9 Acute upper respiratory infection, unspecified (principal); J45.909 Unspecified asthma, uncomplicated; Z20.822 Contact with and (suspected) exposure to COVID-19; Z88.1 Allergy status to other antibiotic agents
CPT/HCPCS: 87635; 99283

== ENCOUNTER 2021-06-27 07:38 | Emergency (ER) | payer OTHER ==
--- NOTE | 2021-06-27 08:31 | XR ---
EXAMINATION TYPE: XR chest 2V DATE OF EXAM: 06/27/2021 COMPARISON: 07/31/2020 TECHNIQUE: PA and lateral views submitted. HISTORY: Cough FINDINGS: The lungs are clear and there is no pneumothorax, pleural effusion, or focal pneumonia. Heart size is normal. Hyperinflation seen. No overt failure. IMPRESSION: 1. No acute process. Correlate for COPD.
--- NOTE | 2021-06-27 08:36 | ED ---
URI HPI - General Chief Complaint: Upper Respiratory Infection Stated Complaint: sinus congestion, body aches Time Seen by Provider: 06/27/21 07:46 Source: patient, RN notes reviewed Mode of arrival: ambulatory Limitations: no limitations - History of Present Illness Initial Comments: This a 36-year-old female presents emergency apartment with chief complaint sinus congestion cough. Patient states she's been sick for 2 weeks states she thought she was getting better but has not suddenly worsen. She states she primary has sinus pressure and congestion is worse when she lays down she has mild productive cough. No reported fever recently complain of mild body aches. Patient denies any nausea vomiting diarrhea constipation patient offers no other associated complaints. - Related Data Home Medications Medication Instructions Recorded Confirmed Albuterol Inhaler [Ventolin Hfa 2 puff INHALATION RT-QID PRN 01/25/21 01/25/21 Inhaler] Omeprazole [PriLOSEC] 40 mg PO DAILY PRN 01/25/21 01/25/21 Previous Rx's Medication Instructions Recorded predniSONE 50 mg PO DAILY #5 tab 06/27/21 Allergies Allergy/AdvReac Type Severity Reaction Status Date / Time ampicillin [From Unasyn] Allergy Intermediate Rash/Hives Verified 06/27/21 07:44 sulbactam [From Unasyn] Allergy Intermediate Rash/Hives Verified 06/27/21 07:44 ciprofloxacin [From Cipro] Allergy Rash/Hives Verified 06/27/21 07:44 ciprofloxacin HCl Allergy Rash/Hives Verified 06/27/21 07:44 [From Cipro] Review of Systems ROS Statement: Those systems with pertinent positive or pertinent negative responses have been documented in the HPI. ROS Other: All systems not noted in ROS Statement are negative. Past Medical History Past Medical History: Asthma Additional Past Medical History / Comment(s): LYME DISEASE History of Any Multi-Drug Resistant Organisms: None Reported Past Surgical History: Tubal Ligation Additional Past Surgical History / Comment(s): lumpectomy right breast Past Anesthesia/Blood Transfusion Reactions: No Reported Reaction Past Psychological History: Anxiety, Depression Smoking Status: Never smoker Past Alcohol Use History: Occasional Past Drug Use History: None Reported - Past Family History Mother Family Medical History: No Reported History General Exam Limitations: no limitations General appearance: alert, in no apparent distress Head exam: Present: atraumatic, normocephalic, normal inspection Eye exam: Present: normal appearance, PERRL, EOMI. Absent: scleral icterus, conjunctival injection, periorbital swelling ENT exam: Present: normal exam, normal oropharynx, mucous membranes moist Neck exam: Present: normal inspection, full ROM. Absent: tenderness, meningismus, lymphadenopathy Respiratory exam: Present: normal lung sounds bilaterally. Absent: respiratory distress, wheezes, rales, rhonchi, stridor Cardiovascular Exam: Present: regular rate, normal rhythm, normal heart sounds. Absent: systolic murmur, diastolic murmur, rubs, gallop, clicks Course Vital Signs 06/27/21 07:42 Temperature 98.7 F Pulse Rate 60 Respiratory 20 Rate Blood Pressure 116/80 O2 Sat by Pulse 99 Oximetry Medical Decision Making - Medical Decision Making This a 32 for a female presents emergency department to complaint of sinus infection, x-rays negative patient's vitals are within normal limits. Patient was given antibiotics for MRSA infection she is advised to start his antibiotics and patient will be discharged to [facility] emergency department. Disposition Clinical Impression: Acute upper respiratory infection, Sinusitis Disposition: HOME SELF-CARE Condition: Stable Instructions (If sedation given, give patient instructions): Upper Respiratory Infection (ED) Additional Instructions: Please return to the Emergency Department if symptoms worsen or any other concerns. Prescriptions: predniSONE 50 mg PO DAILY #5 tab Is patient prescribed a controlled substance at d/c from ED?: No Referrals: Farzad Uribe III, MD [Primary Care Provider] - 1-2 days Time of Disposition: 08:37
[2021-06-27 08:46] VITALS: BP 117/56; PULSE 79; RESP 16; TEMP 97.4
== END 2021-06-27 08:46 | disposition home or self-care (01) ==
LOC: EC 07:38
DX: J06.9 Acute upper respiratory infection, unspecified (principal); J32.9 Chronic sinusitis, unspecified; J45.909 Unspecified asthma, uncomplicated; Z88.0 Allergy status to penicillin; Z88.1 Allergy status to other antibiotic agents
CPT/HCPCS: 71046

== ENCOUNTER 2021-07-14 09:12 | Emergency (ER) | payer OTHER ==
[2021-07-14 09:41] VITALS: TEMP 98.2
[2021-07-14] MEDS ORDERED: SODIUM CHLORIDE 0.9% 1,000 ML IV ONE (09:53)
[2021-07-14] MEDS ORDERED: SODIUM CHLORIDE 0.9% 500 ML 500 ML IV ONE (09:53)
[2021-07-14 10:18] LABS: Basophils # (A) 0.1 k/uL (0-0.2); Basophils % (A) 1 %; Eosinophils # (A) 0.1 k/uL (0-0.7); Eosinophils % (A) 2 %; HCT 39.9 % (34.0-46.0); HGB 13.1 gm/dL (11.4-16.0); Lymphocytes # (A) 1.5 k/uL (1.0-4.8); Lymphocytes % (A) 28 %; MCH 31.8 pg (25.0-35.0); MCHC 32.9 g/dL (31.0-37.0); MCV 96.7 fL (80.0-100.0); Mean Platelet Volume 8.7; Monocytes # (A) 0.3 k/uL (0-1.0); Monocytes % (A) 6 %; Neutrophils # (A) 3.1 k/uL (1.3-7.7); Neutrophils % (A) 60 %; Platelet Count 218 k/uL (150-450); RBC 4.13 m/uL (3.80-5.40); RDW 12.6 % (11.5-15.5); WBC 5.2 k/uL (3.8-10.6)
[2021-07-14 10:33] LABS: ALT 12 U/L (4-34); AST 19 U/L (14-36); African American GFR (CKD) >90 (>60 ml/min/1.73 sqM); Albumin 4.4 g/dL (3.5-5.0); Alkaline Phosphatase 55 U/L (38-126); Anion Gap 9 mmol/L; Blood Urea Nitrogen 9 mg/dL (7-17); Calcium 9.3 mg/dL (8.4-10.2); Carbon Dioxide 21 mmol/L (22-30); Chloride 109 mmol/L (98-107); Glucose 94 mg/dL (74-99); Magnesium 2.3 mg/dL (1.6-2.3); Non-African American GFR(CKD) >90 (>60 ml/min/1.73 sqM); Potassium 4.3 mmol/L (3.5-5.1); Sodium 139 mmol/L (137-145); Total Bilirubin 0.4 mg/dL (0.2-1.3); Total Protein 7.3 g/dL (6.3-8.2)
[2021-07-14 10:34] LABS: INR 0.9 (<1.2); Partial Thromboplastin Time 21.9 sec (22.0-30.0)
--- NOTE | 2021-07-14 10:41 | XR ---
EXAMINATION TYPE: XR chest 2V DATE OF EXAM: 07/14/2021 COMPARISON: Chest x-ray June 27, 2021 HISTORY: Shortness of breath. TECHNIQUE: Frontal and lateral views of the chest are obtained. FINDINGS: There is no suspicious focal air space opacity, pleural effusion, or pneumothorax seen. T he cardiac silhouette size is within normal limits. The osseous structures are intact. IMPRESSION: No acute process. No significant change from prior.
--- NOTE | 2021-07-14 11:47 | ED ---
General Adult HPI - General Chief complaint: Recheck/Abnormal Lab/Rx Stated complaint: Hypotensive, light headed Time Seen by Provider: 07/14/21 09:40 Source: patient, RN notes reviewed Mode of arrival: ambulatory Limitations: no limitations - History of Present Illness Initial comments: This a 36-year-old female presents emergency Department chief complaint of feeling lightheaded. Patient states she felt lightheaded over the last day which is been episodic. 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 Donaldson advised her to come from if she is feeling symptomatic. She had a blood pressure of 100 systolic. Patient states she is unsure what her normal baseline and she is on no medications. She has had chronic issues with chest pain, intermittent, no acute findings from cardiology. She states she did have episode chest pain other day she states she felt lightheaded like she did not pass out but never did no dizziness no focal weakness. - Related Data Home Medications Medication Instructions Recorded Confirmed Omeprazole [PriLOSEC] 40 mg PO DAILY PRN 01/25/21 07/14/21 Allergies Allergy/AdvReac Type Severity Reaction Status Date / Time ampicillin [From Unasyn] Allergy Intermediate Rash/Hives Verified 07/14/21 10:15 sulbactam [From Unasyn] Allergy Intermediate Rash/Hives Verified 07/14/21 10:15 ciprofloxacin [From Cipro] Allergy Rash/Hives Verified 07/14/21 10:15 ciprofloxacin HCl Allergy Rash/Hives Verified 07/14/21 10:15 [From Cipro] Review of Systems ROS Statement: Those systems with pertinent positive or pertinent negative responses have been documented in the HPI. ROS Other: All systems not noted in ROS Statement are negative. Past Medical History Past Medical History: Asthma Additional Past Medical History / Comment(s): LYME DISEASE History of Any Multi-Drug Resistant Organisms: None Reported Past Surgical History: Tubal Ligation Additional Past Surgical History / Comment(s): lumpectomy right breast Past Anesthesia/Blood Transfusion Reactions: No Reported Reaction Past Psychological History: Anxiety, Depression Smoking Status: Never smoker Past Alcohol Use History: Occasional Past Drug Use History: None Reported - Past Family History Mother Family Medical History: No Reported History General Exam Limitations: no limitations General appearance: alert, in no apparent distress Head exam: Present: atraumatic, normocephalic, normal inspection Eye exam: Present: normal appearance, PERRL, EOMI. Absent: scleral icterus, c onjunctival injection, periorbital swelling ENT exam: Present: normal exam, normal oropharynx, mucous membranes moist Neck exam: Present: normal inspection, full ROM. Absent: tenderness, meningismus, lymphadenopathy Respiratory exam: Present: normal lung sounds bilaterally. Absent: respiratory distress, wheezes, rales, rhonchi, stridor Cardiovascular Exam: Present: regular rate, normal rhythm, normal heart sounds. Absent: systolic murmur, diastolic murmur, rubs, gallop, clicks GI/Abdominal exam: Present: soft, normal bowel sounds. Absent: distended, tenderness, guarding, rebound, rigid Course Vital Signs 07/14/21 07/14/21 07/14/21 09:13 09:41 11:03 Temperature 98.2 F Pulse Rate 76 71 Pulse Rate [ 71 79 Sitting Pulse Oximetery] Pulse Rate [ 74 Standing Pulse Oximetery] Pulse Rate [ 77 Supine Pulse Oximetery] Respiratory 18 18 Rate Blood Pressure 131/74 113/72 Blood Pressure 114/73 [Sitting] Blood Pressure 115/72 [Standing] Blood Pressure 110/72 [Supine] O2 Sat by Pulse 100 100 Oximetry 07/14/21 11:29 Temperature Pulse Rate 81 Pulse Rate [ Sitting Pulse Oximetery] Pulse Rate [ Standing Pulse Oximetery] Pulse Rate [ Supine Pulse Oximetery] Respiratory 16 Rate Blood Pressure 115/72 Blood Pressure [Sitting] Blood Pressure [Standing] Blood Pressure [Supine] O2 Sat by Pulse 100 Oximetry Medical Decision Making - Medical Decision Making 36-year-old female presented from cardio feeling lightheaded. Patient was sent in by cardiology for evaluation. Labs are unremarkable. Orthostatic blood pressures within normal limits there are no acute changes. - Lab Data Result diagrams: 07/14/21 10:06 07/14/21 10:06 Lab Results 07/14/21 07/14/21 07/14/21 Range/Units 10:06 10:06 10:06 WBC 5.2 (3.8-10.6) k/uL RBC 4.13 (3.80-5.40) m/uL Hgb 13.1 (11.4-16.0) gm/dL Hct 39.9 (34.0-46.0) % MCV 96.7 (80.0-100.0) fL MCH 31.8 (25.0-35.0) pg MCHC 32.9 (31.0-37.0) g/dL RDW 12.6 (11.5-15.5) % Plt Count 218 (150-450) k/uL MPV 8.7 Neutrophils % 60 % Lymphocytes % 28 % Monocytes % 6 % Eosinophils % 2 % Basophils % 1 % Neutrophils # 3.1 (1.3-7.7) k/uL Lymphocytes # 1.5 (1.0-4.8) k/uL Monocytes # 0.3 (0-1.0) k/uL Eosinophils # 0.1 (0-0.7) k/uL Basophils # 0.1 (0-0.2) k/uL PT 10.0 (9.0-12.0) sec INR 0.9 (<1.2) APTT 21.9 L (22.0-30.0) sec Sodium 139 (137-145) mmol/L Potassium 4.3 (3.5-5.1) mmol/L Chloride 109 H (98-107) mmol/L Carbon Dioxide 21 L (22-30) mmol/L Anion Gap 9 mmol/L BUN 9 (7-17) mg/dL Creatinine 0.57 (0.52-1.04) mg/dL Est GFR (CKD-EPI)AfAm >90 (>60 ml/min/1.73 sqM) Est GFR (CKD-EPI)NonAf >90 (>60 ml/min/1.73 sqM) Glucose 94 (74-99) mg/dL Calcium 9.3 (8.4-10.2) mg/dL Magnesium 2.3 (1.6-2.3) mg/dL Total Bilirubin 0.4 (0.2-1.3) mg/dL AST 19 (14-36) U/L ALT 12 (4-34) U/L Alkaline Phosphatase 55 (38-126) U/L Troponin I (0.000-0.034) ng/mL NT-Pro-B Natriuret Pep pg/mL Total Protein 7.3 (6.3-8.2) g/dL Albumin 4.4 (3.5-5.0) g/dL 07/14/21 07/14/21 Range/Units 10:06 10:06 WBC (3.8-10.6) k/uL RBC (3.80-5.40) m/uL Hgb (11.4-16.0) gm/dL Hct (34.0-46.0) % MCV (80.0-100.0) fL MCH (25.0-35.0) pg MCHC (31.0-37.0) g/dL RDW (11.5-15.5) % Plt Count (150-450) k/uL MPV Neutrophils % % Lymphocytes % % Monocytes % % Eosinophils % % Basophils % % Neutrophils # (1.3-7.7) k/uL Lymphocytes # (1.0-4.8) k/uL Monocytes # (0-1.0) k/uL Eosinophils # (0-0.7) k/uL Basophils # (0-0.2) k/uL PT (9.0-12.0) sec INR (<1.2) APTT (22.0-30.0) sec Sodium (137-145) mmol/L Potassium (3.5-5.1) mmol/L Chloride (98-107) mmol/L Carbon Dioxide (22-30) mmol/L Anion Gap mmol/L BUN (7-17) mg/dL Creatinine (0.52-1.04) mg/dL Est GFR (CKD-EPI)AfAm (>60 ml/min/1.73 sqM) Est GFR (CKD-EPI)NonAf (>60 ml/min/1.73 sqM) Glucose (74-99) mg/dL Calcium (8.4-10.2) mg/dL Magnesium (1.6-2.3) mg/dL Total Bilirubin (0.2-1.3) mg/dL AST (14-36) U/L ALT (4-34) U/L Alkaline Phosphatase (38-126) U/L Troponin I <0.012 (0.000-0.034) ng/mL NT-Pro-B Natriuret Pep 35 pg/mL Total Protein (6.3-8.2) g/dL Albumin (3.5-5.0) g/dL Disposition Clinical Impression: Lightheaded Disposition: HOME SELF-CARE Condition: Stable Instructions (If sedation given, give patient instructions): Lightheadedness (ED) Additional Instructions: Please return to the Emergency Department if symptoms worsen or any other concerns. Is patient prescribed a controlled substance at d/c from ED?: No Referrals: Farzad Uribe III, MD [Primary Care Provider] - 1-2 days Time of Disposition: 12:23
[2021-07-14 12:52] VITALS: BP 110/63; PULSE 79; RESP 18
== END 2021-07-14 12:51 | disposition home or self-care (01) ==
LOC: EC 09:12
DX: R51.9 Headache, unspecified (principal); J45.909 Unspecified asthma, uncomplicated; Z88.0 Allergy status to penicillin; Z88.1 Allergy status to other antibiotic agents
CPT/HCPCS: 36415; 71046; 80053; 83735; 83880; 84484; 85025; 85610; 85730; 93005; 96360; 99285

== ENCOUNTER 2022-01-17 05:00 | Emergency (ER) | payer OTHER ==
[2022-01-17 05:20] VITALS: TEMP 98
[2022-01-17] MEDS ORDERED: IPRATROPIUM-ALBUTEROL 3 ML NEB INHALATION STA (05:21)
[2022-01-17] MEDS ORDERED: SODIUM CHLORIDE 0.9% 1,000 ML IV STA (05:23)
--- NOTE | 2022-01-17 05:27 | ED ---
URI HPI - General Source: patient, RN notes reviewed, old records reviewed Mode of arrival: ambulatory Limitations: no limitations - History of Present Illness MD Complaint: cough, sore throat, nasal congestion -: days(s) Severity: moderate Severity scale (1-10): 3 Quality: aching Consistency: intermittent Improves With: nothing Worsens With: nothing Context: sick contacts Associated Symptoms: chills, myalgias, rhinorrhea, nasal congestion Treatments Prior to Arrival: none <Matthew Wiggins - Last Filed: 01/17/22 06:50> <Matt Vazquez - Last Filed: 01/17/22 08:28> - General Chief Complaint: Upper Respiratory Infection Stated Complaint: Shortness of breath, Congestion, Cough Time Seen by Provider: 01/17/22 05:21 - Related Data Home Medications Medication Instructions Recorded Confirmed Omeprazole [PriLOSEC] 40 mg PO DAILY PRN 01/25/21 07/14/21 Previous Rx's Medication Instructions Recorded Azithromycin [Zithromax Z Pack] 250 mg PO DAILY #6 tab 01/17/22 Allergies Allergy/AdvReac Type Severity Reaction Status Date / Time ampicillin [From Unasyn] Allergy Intermediate Rash/Hives Verified 07/14/21 10:15 sulbactam [From Unasyn] Allergy Intermediate Rash/Hives Verified 07/14/21 10:15 ciprofloxacin [From Cipro] Allergy Rash/Hives Verified 07/14/21 10:15 ciprofloxacin HCl Allergy Rash/Hives Verified 07/14/21 10:15 [From Cipro] Review of Systems ROS Other: All systems not noted in ROS Statement are negative. <Matthew Wiggins - Last Filed: 01/17/22 06:50> ROS Other: All systems not noted in ROS Statement are negative. <Matt Vazquez - Last Filed: 01/17/22 08:28> ROS Statement: Those systems with pertinent positive or pertinent negative responses have been documented in the HPI. Past Medical History Past Medical History: Asthma Additional Past Medical History / Comment(s): LYME DISEASE History of Any Multi-Drug Resistant Organisms: None Reported Past Surgical History: Tubal Ligation Additional Past Surgical History / Comment(s): lumpectomy right breast Past Anesthesia/Blood Transfusion Reactions: No Reported Reaction Past Psychological History: Anxiety, Depression Smoking Status: Never smoker Past Alcohol Use History: Occasional Past Drug Use History: None Reported - Past Family History Mother Family Medical History: No Reported History <Matthew Wiggins - Last Filed: 01/17/22 06:50> General Exam Limitations: no limitations General appearance: alert, in no apparent distress Head exam: Present: atraumatic, normocephalic, normal inspection Eye exam: Present: normal appearance, PERRL, EOMI. Absent: scleral icterus, conjunctival injection, periorbital swelling ENT exam: Present: normal exam, mucous membranes moist Neck exam: Present: normal inspection. Absent: tenderness, meningismus, lymphadenopathy Respiratory exam: Present: normal lung sounds bilaterally. Absent: respiratory distress, wheezes, rales, rhonchi, stridor Cardiovascular Exam: Present: regular rate, normal rhythm, normal heart sounds. Absent: systolic murmur, diastolic murmur, rubs, gallop, clicks GI/Abdominal exam: Present: soft, normal bowel sounds. Absent: distended, tenderness, guarding, rebound, rigid Extremities exam: Present: normal inspection, full ROM, normal capillary refill. Absent: tenderness, pedal edema, joint swelling, calf tenderness Back exam: Present: normal inspection Neurological exam: Present: alert, oriented X3, CN II-XII intact Psychiatric exam: Present: normal affect, normal mood Skin exam: Present: warm, dry, intact, normal color. Absent: rash <Matthew Wiggins - Last Filed: 01/17/22 06:50> Course Vital Signs 01/17/22 01/17/22 01/17/22 05:17 05:24 05:31 Temperature 98 F Pulse Rate 89 90 97 Respiratory 18 Rate Blood Pressure 110/66 O2 Sat by Pulse 100 Oximetry Medical Decision Making - Lab Data Result diagrams: 01/17/22 05:24 01/17/22 05:24 <Matthew Wiggins - Last Filed: 01/17/22 06:50> - Lab Data Result diagrams: 01/17/22 05:24 01/17/22 05:24 <Matt Vazquez - Last Filed: 01/17/22 08:28> - Medical Decision Making Patient reevaluated by myself, Dr. Vazquez. Patient resting comfortably in bed. No dyspnea. Lung sounds are clear. Pharynx with mild erythema. Patient does have minimal lymphadenopathy however is tender. No meningismus. TMs clear bilateral. Patient has mild tenderness over sinuses. Patient updated on results and need for follow-up. (Matt Vazquez) - Lab Data Lab Results 01/17/22 01/17/22 01/17/22 Range/Units 05:24 05:24 05:24 WBC 13.7 H (3.8-10.6) k/uL RBC 4.11 (3.80-5.40) m/uL Hgb 13.3 (11.4-16.0) gm/dL Hct 39.1 (34.0-46.0) % MCV 95.1 (80.0-100.0) fL MCH 32.2 (25.0-35.0) pg MCHC 33.9 (31.0-37.0) g/dL RDW 12.3 (11.5-15.5) % Plt Count 161 (150-450) k/uL MPV 9.3 Neutrophils % 87 % Lymphocytes % 7 % Monocytes % 4 % Eosinophils % 1 % Basophils % 0 % Neutrophils # 11.9 H (1.3-7.7) k/uL Lymphocytes # 1.0 (1.0-4.8) k/uL Monocytes # 0.5 (0-1.0) k/uL Eosinophils # 0.1 (0-0.7) k/uL Basophils # 0.0 (0-0.2) k/uL Sodium 136 L (137-145) mmol/L Potassium 3.7 (3.5-5.1) mmol/L Chloride 109 H (98-107) mmol/L Carbon Dioxide 23 (22-30) mmol/L Anion Gap 4 mmol/L BUN 6 L (7-17) mg/dL Creatinine 0.57 (0.52-1.04) mg/dL Est GFR (CKD-EPI)AfAm >90 (>60 ml/min/1.73 sqM) Est GFR (CKD-EPI)NonAf >90 (>60 ml/min/1.73 sqM) Glucose 106 H (74-99) mg/dL Calcium 8.7 (8.4-10.2) mg/dL Magnesium 2.1 (1.6-2.3) mg/dL Total Bilirubin 0.4 (0.2-1.3) mg/dL AST 22 (14-36) U/L ALT 18 (4-34) U/L Alkaline Phosphatase 59 (38-126) U/L Troponin I <0.012 (0.000-0.034) ng/mL NT-Pro-B Natriuret Pep pg/mL Total Protein 5.6 L (6.3-8.2) g/dL Albumin 3.5 (3.5-5.0) g/dL Influenza Type A (PCR) (Not Detectd) Influenza Type B (PCR) (Not Detectd) RSV (PCR) (Not Detectd) SARS-CoV-2 (PCR) (Not Detectd) 01/17/22 01/17/22 Range/Units 05:24 07:04 WBC (3.8-10.6) k/uL RBC (3.80-5.40) m/uL Hgb (11.4-16.0) gm/dL Hct (34.0-46.0) % MCV (80.0-100.0) fL MCH (25.0-35.0) pg MCHC (31.0-37.0) g/dL RDW (11.5-15.5) % Plt Count (150-450) k/uL MPV Neutrophils % % Lymphocytes % % Monocytes % % Eosinophils % % Basophils % % Neutrophils # (1.3-7.7) k/uL Lymphocytes # (1.0-4.8) k/uL Monocytes # (0-1.0) k/uL Eosinophils # (0-0.7) k/uL Basophils # (0-0.2) k/uL Sodium (137-145) mmol/L Potassium (3.5-5.1) mmol/L Chloride (98-107) mmol/L Carbon Dioxide (22-30) mmol/L Anion Gap mmol/L BUN (7-17) mg/dL Creatinine (0.52-1.04) mg/dL Est GFR (CKD-EPI)AfAm (>60 ml/min/1.73 sqM) Est GFR (CKD-EPI)NonAf (>60 ml/min/1.73 sqM) Glucose (74-99) mg/dL Calcium (8.4-10.2) mg/dL Magnesium (1.6-2.3) mg/dL Total Bilirubin (0.2-1.3) mg/dL AST (14-36) U/L ALT (4-34) U/L Alkaline Phosphatase (38-126) U/L Troponin I (0.000-0.034) ng/mL NT-Pro-B Natriuret Pep 45 pg/mL Total Protein (6.3-8.2) g/dL Albumin (3.5-5.0) g/dL Influenza Type A (PCR) Not Detected (Not Detectd) Influenza Type B (PCR) Not Detected (Not Detectd) RSV (PCR) Not Detected (Not Detectd) SARS-CoV-2 (PCR) Not Detected (Not Detectd) Disposition <Matthew Wiggins - Last Filed: 01/17/22 06:50> Is patient prescribed a controlled substance at d/c from ED?: No Time of Disposition: 08:28 <Matt Vazquez - Last Filed: 01/17/22 08:28> Clinical Impression: Pharyngitis Disposition: HOME SELF-CARE Condition: Stable Instructions (If sedation given, give patient instructions): Pharyngitis (ED) Additional Instructions: Prescription sent to pharmacy. Please do follow-up with primary care physician in the next day or 2 for recheck. Return for difficulty breathing, not tolerating fluids, uncontrolled fever, worsening symptoms or any other concerns. Continue [id number] Tylenol or Motrin as needed. Prescriptions: Azithromycin [Zithromax Z Pack] 250 mg PO DAILY #6 tab Referrals: Farzad Uribe III, MD [Primary Care Provider] - 1-2 days
[2022-01-17] MEDS ORDERED: ACETAMINOPHEN TAB 500 MG TAB PO STA (05:36)
[2022-01-17] MEDS ORDERED: KETOROLAC 15 MG/ML 1 ML VIAL IVP STA (05:36)
[2022-01-17 05:37] LABS: Basophils % (A) 0 %; Eosinophils # (A) 0.1 k/uL (0-0.7); Eosinophils % (A) 1 %; HCT 39.1 % (34.0-46.0); HGB 13.3 gm/dL (11.4-16.0); Lymphocytes % (A) 7 %; MCH 32.2 pg (25.0-35.0); MCHC 33.9 g/dL (31.0-37.0); MCV 95.1 fL (80.0-100.0); Mean Platelet Volume 9.3; Monocytes # (A) 0.5 k/uL (0-1.0); Monocytes % (A) 4 %; Neutrophils # (A) 11.9 k/uL (1.3-7.7); Neutrophils % (A) 87 %; Platelet Count 161 k/uL (150-450); RBC 4.11 m/uL (3.80-5.40); RDW 12.3 % (11.5-15.5); WBC 13.7 k/uL (3.8-10.6)
[2022-01-17 05:53] LABS: ALT 18 U/L (4-34); AST 22 U/L (14-36); African American GFR (CKD) >90 (>60 ml/min/1.73 sqM); Albumin 3.5 g/dL (3.5-5.0); Alkaline Phosphatase 59 U/L (38-126); Anion Gap 4 mmol/L; Blood Urea Nitrogen 6 mg/dL (7-17); Calcium 8.7 mg/dL (8.4-10.2); Carbon Dioxide 23 mmol/L (22-30); Chloride 109 mmol/L (98-107); Glucose 106 mg/dL (74-99); Magnesium 2.1 mg/dL (1.6-2.3); Non-African American GFR(CKD) >90 (>60 ml/min/1.73 sqM); Potassium 3.7 mmol/L (3.5-5.1); Sodium 136 mmol/L (137-145); Total Bilirubin 0.4 mg/dL (0.2-1.3); Total Protein 5.6 g/dL (6.3-8.2)
--- NOTE | 2022-01-17 06:44 | XR ---
EXAM: XR Chest, 1 View CLINICAL HISTORY: ITS.REASON XR Reason: cough TECHNIQUE: Frontal view of the chest. COMPARISON: 07/14/2021 FINDINGS: Lungs: Unremarkable. No consolidation. Pleural space: Unremarkable. No pneumothorax. Heart: Unremarkable. No cardiomegaly. Mediastinum: Unremarkable. Bones/joints: Unremarkable. IMPRESSION: Normal chest x-ray.
[2022-01-17 08:34] VITALS: BP 97/53; PULSE 91; RESP 20
== END 2022-01-17 08:34 | disposition home or self-care (01) ==
LOC: EC 05:00
DX: J02.9 Acute pharyngitis, unspecified (principal); J45.909 Unspecified asthma, uncomplicated; F41.9 Anxiety disorder, unspecified; F32.A Depression, unspecified; Z88.0 Allergy status to penicillin; Z88.1 Allergy status to other antibiotic agents; Z20.822 Contact with and (suspected) exposure to COVID-19
CPT/HCPCS: 36415; 71045; 80053; 83735; 83880; 84484; 85025; 87636; 94640; 96361; 96374; 99285

== ENCOUNTER 2023-05-11 19:52 | Emergency (ER) | payer OTHER ==
[2023-05-11] MEDS ORDERED: guaiFENesin-DM 600/30MG 1 EACH TAB.ER.12H PO PRN (20:09)
--- NOTE | 2023-05-11 20:15 | ED ---
General Adult HPI - General Chief complaint: Upper Respiratory Infection Stated complaint: SOB, chest tightness, coughing up mucus Time Seen by Provider: 05/11/23 20:03 Source: patient, RN notes reviewed Mode of arrival: ambulatory Limitations: no limitations - History of Present Illness Initial comments: 38-year-old female, with a past medical history of asthma, presents to the emergency department with a chief complaint of a productive cough and shortness of breath. Patient has been experiencing the symptoms in addition to body aches, fatigue, and sore throat since Saturday morning. Patient states that she went to urgent care on where they diagnosed her with a sinus infection and she was sent home on Augmentin and prednisone. Patient states the did not complete any viral testing on her or complete a chest x-ray. Denies any fevers, chest pain, pain on exertion. Patient states that stepdaughter was diagnosed with strep throat on . - Related Data Previous Rx's Medication Instructions Recorded Cyclobenzaprine [Flexeril] 5 mg PO TID PRN #15 tablet 04/30/22 Ibuprofen [Motrin] 600 mg PO Q8HR PRN #20 tab 04/30/22 Allergies Allergy/AdvReac Type Severity Reaction Status Date / Time ampicillin [From Unasyn] Allergy Intermediate Rash/Hives Verified 05/11/23 19:58 sulbactam [From Unasyn] Allergy Intermediate Rash/Hives Verified 05/11/23 19:58 ciprofloxacin [From Cipro] Allergy Rash/Hives Verified 05/11/23 19:58 ciprofloxacin HCl Allergy Rash/Hives Verified 05/11/23 19:58 [From Cipro] Review of Systems ROS Statement: Those systems with pertinent positive or pertinent negative responses have been documented in the HPI. ROS Other: All systems not noted in ROS Statement are negative. Past Medical History Past Medical History: Asthma Additional Past Medical History / Comment(s): LYME DISEASE History of Any Multi-Drug Resistant Organisms: None Reported Past Surgical History: Tubal Ligation Additional Past Surgical History / Comment(s): lumpectomy right breast Past Anesthesia/Blood Transfusion Reactions: No Reported Reaction Past Psychological History: Anxiety, Depression Smoking Status: Never smoker Past Alcohol Use History: Occasional Past Drug Use History: None Reported - Past Family History Mother Family Medical History: No Reported History General Exam Limitations: no limitations General appearance: alert, in no apparent distress Head exam: Present: atraumatic, normocephalic, normal inspection Eye exam: Present: normal appearance, PERRL, EOMI. Absent: scleral icterus, conjunctival injection, periorbital swelling Expanded Ear exam: Present: normal external inspection TM/Canal exam: Effusion: Right TM, Left TM (clear fluid, does not appear to be infectious) Neck exam: Present: lymphadenopathy (anterior cervical) Respiratory exam: Present: decreased breath sounds (right lung field). Absent: respiratory distress, wheezes, rhonchi Cardiovascular Exam: Present: regular rate, normal rhythm, normal heart sounds. Absent: systolic murmur, diastolic murmur, rubs, gallop, clicks GI/Abdominal exam: Present: soft, normal bowel sounds. Absent: distended, tenderness, guarding, rebound, rigid Extremities exam: Present: normal inspection, full ROM, normal capillary refill. Absent: tenderness, pedal edema, joint swelling, calf tenderness Back exam: Present: normal inspection Neurological exam: Present: alert, oriented X3, CN II-XII intact Psychiatric exam: Present: normal affect, normal mood Skin exam: Present: warm, dry, intact, normal color. Absent: rash Course Vital Signs 05/11/23 05/11/23 05/11/23 19:55 21:11 21:21 Temperature 97.7 F Pulse Rate 105 H 86 84 Respiratory 16 Rate Blood Pressure 121/76 O2 Sat by Pulse 100 Oximetry Medical Decision Making - Medical Decision Making Was pt. sent in by a medical professional or institution (, PA, OVERHEAD DOOR TECHNICIAN, urgent care, hospital, or half-way...) When possible be specific @ -No Did you speak to anyone other than the patient for history (EMS, parent, family, police, friend...)? What history was obtained from this source @ -No Did you review nursing and triage notes (agree or disagree)? Why? @ -I reviewed and agree with nursing and triage notes Were old charts reviewed (outside hosp., previous admission, EMS record, old EKG, old radiological studies, urgent care reports/EKG's, half-way records)? Report findings @ -No old charts were reviewed Differential Diagnosis (chest pain, altered mental status, abdominal pain women, abdominal pain men, vaginal bleeding, weakness, fever, dyspnea, syncope, headache, dizziness, GI bleed, back pain, seizure, CVA, palpatations, mental health, musculoskeletal)? @ -COVID 19, RSV, influenza, pneumonia, acute bronchitis, URI, this list is not all inclusive EKG interpreted by me (3pts min.). @ -None X-rays interpreted by me (1pt min.). @ -CXR no acute cardiopulmonary process CT interpreted by me (1pt min.). @ -None done U/S interpreted by me (1pt. min.). @ -None done What testing was considered but not performed or refused? (CT, X-rays, U/S, labs)? Why? @ -None What meds were considered but not given or refused? Why? @ -None Did you discuss the management of the patient with other professionals (professionals i.e. , PA, OVERHEAD DOOR TECHNICIAN, lab, RT, psych nurse, outreach and education social worker, outboard motor assembler, teacher, food safety officer, upper caser)? Give summary @ -No Was smoking cessation discussed for >3mins.? @ -No Was critical care preformed (if so, how long)? @ -No Were there social determinants of health that impacted care today? How? (Homelessness, low income, unemployed, alcoholism, drug addiction, transportation, low edu. Level, literacy, decrease access to med. care, longterm, rehab)? @ -No Was there de-escalation of care discussed even if they declined (Discuss DNR or withdrawal of care, Hospice)? DNR status @ -No What co-morbidities impacted this encounter? (DM, HTN, Smoking, COPD, CAD, Cancer, CVA, ARF, Chemo, Hep., AIDS, mental health diagnosis, sleep apnea, morbid obesity)? @ -None Was patient admitted / discharged? Hospital course, mention meds given and route, prescriptions, significant lab abnormalities, going to OR and other pertinent info. @ -Discharged. patient given dose of mucinex to aid in decongestion. CXR no acute cardiopulmonary process. Viral swab positive for influenza A, negative for strep throat. Patient states that she feels better after breathing treatment and that her chest is less heavy. auscultation after breathing treatment revealed increase air movement. Patient will be provided with outpatient albuterol inhaler PRN since she is out of hers. Undiagnosed new problem with uncertain prognosis? @ -No Drug Therapy requiring intensive monitoring for toxicity (Heparin, Nitro, Insulin, Cardizem)? @ -No Were any procedures done? @ -No Diagnosis/symptom? @ -Influenza A Acute, or Chronic, or Acute on Chronic? @ -Acute Uncomplicated (without systemic symptoms) or Complicated (systemic symptoms)? @ -Uncomplicated Side effects of treatment? @ -No Exacerbation, Progression, or Severe Exacerbation? @ -No Poses a threat to life or bodily function? How? (Chest pain, USA, NM, pneumonia, PE, COPD, DKA, ARF, appy, cholecystitis, CVA, Diverticulitis, Homicidal, Suicidal, threat to staff... and all critical care pts) @ -No - Lab Data Lab Results 05/11/23 05/11/23 Range/Units 20:16 20:16 Influenza Type A (PCR) Detected A (Not Detectd) Influenza Type B (PCR) Not Detected (Not Detectd) RSV (PCR) Not Detected (Not Detectd) SARS-CoV-2 (PCR) Not Detected (Not Detectd) Group A Strep (PCR) NOT DETECTED (Not Detectd) Disposition Clinical Impression: Influenza Narrative: Please return to the Emergency Department if symptoms worsen or any other concerns. Disposition: HOME SELF-CARE Condition: Good Is patient prescribed a controlled substance at d/c from ED?: No Referrals: None,Stated [Primary Care Provider] - 1-2 days Time of Disposition: 21:39
--- NOTE | 2023-05-11 20:37 | XR ---
EXAMINATION TYPE: XR chest 2V DATE OF EXAM: 05/11/2023 8:26 PM CLINICAL INDICATION:Female, 38 years old with history of productive cough; [facility] COMPARISON: Chest radiographs from 01/17/2022. TECHNIQUE: XR chest 2V Frontal and lateral views of the chest. FINDINGS: Lungs/Pleura: There is no evidence of pleural effusion, focal consolidation, or pneumothorax. Pulmonary vascularity: Unremarkable. Heart/mediastinum: Cardiomediastinal silhouette is unremarkable. Musculoskeletal: No acute osseous pathology. IMPRESSION: No acute cardiopulmonary disease/process.
[2023-05-11] MEDS: ONDANSETRON ODT 4 MG TAB PO STA (20:42)
[2023-05-11] MEDS: guaiFENesin-DM 600/30MG 1 EACH TAB.ER.12H PO STA (20:48)
[2023-05-11] MEDS: IPRATROPIUM-ALBUTEROL 3 ML NEB INHALATION STA (21:09)
[2023-05-11 22:15] VITALS: BP 118/70; PULSE 81; RESP 20; TEMP 97.9
== END 2023-05-11 22:14 | disposition home or self-care (01) ==
LOC: EC 19:52
DX: J10.1 Influenza due to other identified influenza virus with other respiratory manifestations (principal); R59.0 Localized enlarged lymph nodes; J45.909 Unspecified asthma, uncomplicated; Z20.822 Contact with and (suspected) exposure to COVID-19; Z88.0 Allergy status to penicillin; Z88.1 Allergy status to other antibiotic agents
CPT/HCPCS: 71046; 87636; 87651; 94640; 99285